=== PATIENT | female | born 1990 | race Two or more races ===

== ENCOUNTER 2021-05-11 13:46 | Outpatient (REF) | payer MEDICAID, SELFPAY ==
[2021-05-11 14:36] LABS: COVID-19 Test Positive (Negative)
== END 2021-05-11 13:47 | disposition home or self-care (01) ==
LOC: HO.LAB 13:46
PROVIDERS: Visit Provider Internal Medicine
DX: Z20.822 Contact with and (suspected) exposure to COVID-19 (principal)
CPT/HCPCS: 36415; 87635; C9803

== ENCOUNTER → 2021-10-02 14:56 | Outpatient (REF) | payer MEDICAID, SELFPAY ==
--- NOTE | 2021-10-02 15:01 | CA_ITS ---
Transthoracic Echocardiogram Patient (Last, First, Middle): Yuni Oropeza, Gender: Female Date of : 1990 Age: 31 Procedure Date: 10/02/2021 Procedure Type: Transthoracic Echocardiogram Location: OP Height: 154.94 cm Weight: 58.97 kg BSA: 1.57 m2 Heart Rate: bpm BP: 110 / 70 mmHg Magnetic Resonance Imaging Director: TO Referring MD: Catina Agee MD Food Products Tester: Tarik Brown MD Symptoms: R00.2 PALPITATIONS Study Quality: Adequate Conclusions: - Normal study Findings Left Ventricle Normal left ventricular size, thickness, systolic function, and wall motion. The visually estimated ejection fraction is between 55-60%. Diastolic function is normal for age. Right Ventricle Normal right ventricular cavity size and systolic function. Atria The left atrium is normal in size. Aortic Valve Normal aortic valve structure and function. There is no aortic valve stenosis. There is no aortic valve regurgitation. Mitral Valve Normal mitral valve structure and function. There is trace mitral valve regurgitation. There is no mitral valve stenosis. Pulmonic Valve Normal pulmonic valve structure and function. There is trace pulmonic valve regurgitation. Tricuspid Valve Normal tricuspid valve structure and function. There is trace tricuspid valve regurgitation. Normal right atrial pressure. There is no evidence of pulmonary hypertension. Great Vessels All visible segments of the aorta are normal in size. The visualized portions of the pulmonary artery and branches are normal. Venous The inferior vena cava is normal in size and collapses greater than 50% with inspiration. Pericardium/Pleural There is no evidence of pericardial effusion. Prior Study Comparison No prior study available for comparison. Measurements 2D Linear Measurements IVSd: 0.68 0.6-0.9/0.6-1.0 cm LVIDd: 4.36 3.9-5.3/4.2-5.9 cm LVIDd Index: 2.78 2.4-3.2/2.2-3.1 cm/m2 LVIDs: 3.01 2.0-3.6 cm LVPWd: 0.67 0.7-1.1 cm LA Diam: 2.70 2.7-3.8/3.0-4.0 cm LAIDs Index: 1.72 1.5-2.3 cm/m2 LV Mass: 107.32 67-162/88-224 g LV Mass Index: 68.36 43-95/49-115 g/m2 LVOT Diam: 1.90 3.0+(-)1.3 cm 2D Systolic Function EF 4C: 64.80 >55% EF 2C: 56.80 >55% EF BiP: 62.30 >55% Mitral Valve MV Pk E: 1.03 MV PK A: 0.36 MV Decel Time: 184.00 E/A: 2.90 E'Lateral: 15.70 E'Medial: 10.10 E/E' Med: 10.20 E/E' Lat: 6.60 PHT: 54.00 MVA PHT: 4.07 Decel Hopkins: 5.58 Aortic Valve AoV Pk Jovon: 1.64 AoV Mn Jovon: 1.09 AoV VTI: 0.32 AoV Pk Grad: 11.00 Aov Mn Grad: 5.00 MUNDO Cont.VTI: 2.05 LVOT LVOT Pk Jovon: 1.25 LVOT Mn Jovon: 0.79 LVOT VTI: 0.23 LVOT Pk Grad: 6.00 LVOT Mn Grad: 3.00 LVOT Diam: 1.90 LVOT Area: 2.84 Diastolic Function MV Pk E: 1.03 MV Pk A: 0.36 E/A: 2.90 E'Medial: 10.10 E/E' Med: 10.20 E' Laterial: 15.70 E/E' Lat: 6.60 Right Ventricle TAPSE (mm): 22.90 TVS' Jovon: 13.20 Tricuspid Valve TR Pk Jovon: 1.72 TR Pk Grad: 12.00 RA Press: 3.00 RVSP: 15.00 Great Vessels Aorta Sinus of Valsalva: 3.05 2.0-3.[address] Ridge: 2.38 1.7-3.4 cm Ao Asc: 2.70 2.1-3.4 cm Ao Arch: 2.40 Updated in Other Vendor System with Status of Final Tarik Brown MD electronically signed on 10/05/2021 3:12:17 PM with status of Final
== END ==
LOC: HO.CARD 14:56
PROVIDERS: PCP Internal Medicine; Visit Provider Internal Medicine
DX: R00.2 Palpitations (principal)
CPT/HCPCS: 93306

== ENCOUNTER 2022-11-11 15:38 | Outpatient (REF) | payer MEDICAID, OTHER, SELFPAY ==
[2022-11-11 16:07] LABS: MANUAL DIFF FLAG NO
[2022-11-11 17:18] LABS: Basophils Absolute Auto 0.1 X10*3/uL (0.0-0.2); Basophils Percent Auto 0.6 % (0-2); Eosinophils Absolute Auto 0.1 X10*3/uL (0.0-0.4); Eosinophils Percent Auto 1.4 % (0-4); Hematocrit 37.8 % (37.0-47.0); Hemoglobin 11.9 g/dl (12.0-16.0); Imm Gran Abs Auto 0.02 X10*3/uL (0.00-0.03); Imm Gran Pct Auto 0.3 % (0.0-0.4); Lymphocytes Absolute Auto 2.8 X10*3/uL (1.2-4.9); Lymphocytes Percent Auto 36.6 % (20-40); Mean Corpuscular HGB Conc 31.5 g/dl (31.0-35.0); Mean Corpuscular Hemoglobin 25.8 pg (27.0-33.0); Mean Platelet Volume 12.2 fL (9.4-12.3); Monocytes Absolute Auto 0.5 X10*3/uL (0.1-1.2); Neutrophils Absolute Auto 4.2 x10*3/uL (2.0-8.3); Neutrophils Percent Auto 54.1 % (45-73); Platelet Count 189 X10*3/uL (160-400); Red Blood Count 4.61 X10*6/uL (4.20-5.50); Red Cell Distribution Width 12.1 % (11.0-16.0); White Blood Count 7.8 X10*3/uL (4.8-10.8)
[2022-11-12 08:38] LABS: Estimated Average Glucose 100 mg/dL; Hemoglobin A1c % 5.1 %
[2022-11-12 08:53] LABS: HBc Num1 0.08 S/CO (0.00-0.79); HBsAGNum1 0.36 S/CO (0.00-0.99); HIV AB/AG Nonreactive (Nonreactive); HIV Num 1 0.06 S/CO (0.00-0.99); Hepatitis B Core Antibody Nonreactive (Nonreactive); Hepatitis B Surface Antigen Negative (Negative)
[2022-11-12 09:04] LABS: ~HepC Num1 0.09 S/CO (0.00-0.79); ~Hepatitis C Antibody Nonreactive (Nonreactive)
== END 2022-11-11 15:39 | disposition home or self-care (01) ==
LOC: HO.LAB 15:38
PROVIDERS: PCP Nurse Practitioner Family; Visit Provider Internal Medicine
DX: Z11.4 Encounter for screening for human immunodeficiency virus [HIV] (principal); R42 Dizziness and giddiness
CPT/HCPCS: 36415; 80048; 82728; 83036; 83540; 84443; 85025; 86704; 86803; 87340; 87389

== ENCOUNTER 2022-12-01 17:50 | Outpatient (REF) | payer MEDICAID, OTHER, SELFPAY ==
[2022-12-09 08:43] LABS: HPV 16 RNA NOT DETECTED (NOT DETECTED); HPV mRNA E6/E7 rflx Detected (Not Detected)
== END 2022-12-01 17:51 | disposition home or self-care (01) ==
LOC: HO.HHCLNP 17:50
PROVIDERS: Visit Provider Nurse Practitioner Family
DX: Z01.419 Encounter for gynecological examination (general) (routine) without abnormal findings (principal); Z11.51 Encounter for screening for human papillomavirus (HPV)
CPT/HCPCS: 87624; 87625; 88142

== ENCOUNTER 2022-12-29 18:45 | Outpatient (REF) | payer MEDICAID, OTHER, SELFPAY | END 2022-12-29 18:46 | disposition home or self-care (01) | LOC: HO.HHCLNP 18:45 | PROVIDERS: Visit Provider Internal Medicine | DX: R31.29 Other microscopic hematuria (principal) | CPT/HCPCS: 87086 ==

== ENCOUNTER 2023-01-04 13:46 | Outpatient (REF) | payer MEDICAID, OTHER, SELFPAY ==
--- NOTE | ~2023-01-04 | CT_ITS ---
EXAMINATION: CT ABDOMEN AND PELVIS WITHOUT CONTRAST CLINICAL INFORMATION: Back/flank pain. COMPARISON: None available. TECHNIQUE: Multidetector volumetric imaging was performed from the superior aspect of the liver through the pubic symphysis. Sagittal and coronal reformatted images were obtained on the technologist's workstation. This CT examination was performed using dose optimization techniques as appropriate, variously including the following: *Automated exposure control *Adjustment of mA and/or kV according to patient size (this includes techniques or standardized protocols for targeted exams where dose is matched to indication/reason for exam; i.e. extremities or head) *Use of iterative reconstruction technique DLP: 389 mGy-cm FINDINGS: LUNG BASES: No pleural or pericardial effusion. LIVER, GALLBLADDER, AND BILIARY TREE: The noncontrast liver is normal in size and contour. No biliary ductal dilatation is present. The gallbladder is unremarkable with no evidence of radiopaque gallstones, gallbladder wall thickening, or obvious pericholecystic inflammatory changes. PANCREAS: Unremarkable. SPLEEN: Unremarkable. ADRENAL GLANDS: Unremarkable. KIDNEYS AND URETERS: The kidneys are symmetric in size. Hyperdense medullary pyramids. 3 mm nonobstructing calculi lower pole right kidney. No hydronephrosis or perinephric stranding. BLADDER: Decompressed. GASTROINTESTINAL TRACT: Gastric distention. Small and large bowel loops are of normal caliber. No small bowel obstruction. Appendix is within normal limits. ABDOMINAL WALL: Small fat-containing umbilical hernia. LYMPH NODES: No bulky abdominal or pelvic lymphadenopathy. VASCULAR: Normal caliber abdominal aorta. PELVIC VISCERA: Unremarkable. OSSEOUS STRUCTURES: No destructive bone lesions. CT/CT abdomen pelvis wo IV con IMPRESSION: Right-sided nephrolithiasis. No hydronephrosis. Medullary nephrocalcinosis.
== END 2023-01-04 13:47 | disposition home or self-care (01) ==
LOC: HO.CT 13:46
PROVIDERS: PCP Nurse Practitioner Family; Visit Provider Internal Medicine
DX: R31.29 Other microscopic hematuria (principal)
CPT/HCPCS: 74176

== ENCOUNTER 2023-07-29 11:47 | Outpatient (REF) | payer MEDICAID, OTHER, SELFPAY ==
[2023-07-31 22:33] LABS: TS Negative Control Passed; TS Panel A 0; TS Panel B 0; TS Positive Control Passed; TSpotTB Negative (Negative)
== END 2023-07-29 11:48 | disposition home or self-care (01) ==
LOC: HO.HHCL 11:47
PROVIDERS: Visit Provider Nurse Practitioner Family
DX: Z11.1 Encounter for screening for respiratory tuberculosis (principal)
CPT/HCPCS: 36415; 86481

== ENCOUNTER 2023-09-01 11:35 | Outpatient (REF) | payer MEDICAID, OTHER, SELFPAY ==
[2023-09-01 13:47] LABS: Estimated Average Glucose 105 mg/dL; Hemoglobin A1c % 5.3 % (<6.0)
[2023-09-01 13:53] LABS: Hematocrit 39.6 % (37.0-47.0); Hemoglobin 12.5 g/dl (12.0-16.0); Mean Corpuscular HGB Conc 31.6 g/dl (31.0-35.0); Mean Corpuscular Hemoglobin 26.7 pg (27.0-33.0); Mean Corpuscular Volume 84.6 fL (80.0-98.0); Mean Platelet Volume 12.5 fL (9.4-12.3); Platelet Count 226 X10*3/uL (160-400); Red Blood Count 4.68 X10*6/uL (4.20-5.50); Red Cell Distribution Width 12.6 % (11.0-16.0); White Blood Count 6.9 X10*3/uL (4.8-10.8)
[2023-09-01 14:35] LABS: Alanine Aminotransferase 17 U/L (0-31); Albumin Level 4.1 g/dL (3.5-5.0); Alkaline Phosphatase 70 U/L (39-117); Anion Gap 8 (12-20); Aspartate Amino Transferase 20 U/L (5-31); Bilirubin Total 0.3 mg/dL (0.0-1.0); Blood Urea Nitrogen 13 mg/dL (9-16); Calcium 9.4 mg/dL (8.4-10.2); Carbon Dioxide 29 mmol/L (22-29); Chloride 108 mmol/L (96-108); Estimated Glomerular Filt Rate > 60; Ferritin 35 ng/mL (10-122); Glucose Random 90 mg/dL (60-115); Iron 135 mcg/dL (30-160); Percent Iron Saturation 43 % (15-50); Potassium 4.4 mmol/L (3.3-5.1); Sodium 141 mmol/L (135-145); TSH reflex Free T4 0.83 uIU/mL (0.32-4.0); Total Iron Binding Capacity 311 mcg/dL (228-428); Total Protein 7.6 g/dL (6.5-8.0); Unsaturated Iron Binding 176 ug/dL
[2023-09-02 08:23] LABS: Syphilis Screen Nonreactive (Nonreactive)
[2023-09-02 08:28] LABS: HBS Num1 10.08 mIU/mL (0-7.99); HBsAGNum1 0.43 S/CO (0.00-0.99); HIV AB/AG Nonreactive (Nonreactive); HIV Num 1 0.05 S/CO (0.00-0.99); Hepatitis B Core Antibody Nonreactive (Nonreactive); Hepatitis B Surface Antigen Negative (Negative); ~HepC Num1 0.12 S/CO (0.00-0.79); ~Hepatitis C Antibody Nonreactive (Nonreactive)
[2023-09-02 09:29] LABS: HBS Num2 9.97 mIU/mL (0-7.99); HBS Num3 9.51 mIU/mL (0-7.99); ~Hepatitis B Surface Antibody GRAYZONE (Nonreactive)
== END 2023-09-01 11:36 | disposition home or self-care (01) ==
LOC: HO.HHCL 11:35
PROVIDERS: Visit Provider Student in an Organized Health Care Education/Training Program
DX: Z00.00 Encounter for general adult medical examination without abnormal findings (principal); Z11.4 Encounter for screening for human immunodeficiency virus [HIV]
CPT/HCPCS: 36415; 80053; 82728; 83036; 83540; 84443; 85027; 86704; 86706; 86780; 86803; 87340; 87389

== ENCOUNTER 2024-03-11 11:34 | Emergency (ER) | payer OTHER, SELFPAY ==
--- NOTE | ~2024-03-11 | US_ITS ---
EXAMINATION: US PELVIS CLINICAL INFORMATION: Lower abdomen pain, question torsion COMPARISON: CT abdomen and pelvis from the same day TECHNIQUE: Ultrasound of the pelvis is performed using both transabdominal and transvaginal transducers along with Doppler. Transvaginal imaging is performed due to inadequate visualization transabdominally. FINDINGS: Uterus: The uterus is retroverted retroflexed and measures 7.2 x 3.5 x 4.9 cm. The double wall endometrial thickness is 1.1 mm. The uterus is smooth in contour and has normal myometrial echogenicity. No visible fibroid. Adnexa: Both ovaries are visualized. There is normal color flow to the adnexa. There is no ovarian torsion. There is no pelvic ascites or fluid collection. Right ovary measures 2.1 x 0.8 x 1.2 cm. Left ovary measures 2.5 x 1.0 x 1.2 cm. US/US pelvic ovarian doppler IMPRESSION: Unremarkable pelvic ultrasound. Electronically signed by: John Espino MD 03/11/2024 01:57 PM VIVIENNE
--- NOTE | ~2024-03-11 | CT_ITS ---
EXAMINATION: CT ABDOMEN AND PELVIS WITH CONTRAST CLINICAL INFORMATION: Pelvic and abdominal pain COMPARISON: 01/04/2023 TECHNIQUE: Multidetector volumetric images were obtained from the superior aspect of the liver through the pubic symphysis following administration 85 mL of Omnipaque 350 intravenous contrast. Sagittal and coronal reformatted images were obtained on the technologist's workstation. Oral contrast: No This CT examination was performed using dose optimization techniques as appropriate, variously including the following: *Automated exposure control *Adjustment of mA and/or kV according to patient size (this includes techniques or standardized protocols for targeted exams where dose is matched to indication/reason for exam; i.e. extremities or head) *Use of iterative reconstruction technique DLP: 372 mGy-cm FINDINGS: LUNG BASES: The visualized lung bases are unremarkable. LIVER, GALLBLADDER, AND BILIARY TREE: The liver is normal in size, shape, and attenuation. No focal hepatic lesion or biliary ductal dilatation is present. The gallbladder is unremarkable with no evidence of radiopaque gallstones, gallbladder wall thickening, or obvious pericholecystic inflammatory changes. PANCREAS: Unremarkable. SPLEEN: Unremarkable. ADRENAL GLANDS: Unremarkable. KIDNEYS AND URETERS: There is mild right-sided hydroureteronephrosis with a suspected 3 mm calculus at the right ureterovesicular junction. There is a 3 mm kyphosis in the lower pole of the right kidney. No left-sided hydronephrosis or calculi. BLADDER: Unremarkable. GASTROINTESTINAL TRACT: The small and large bowel are unremarkable. The appendix is unremarkable. ABDOMINAL WALL: Small fat-containing umbilical hernia. LYMPH NODES: Normal. VASCULAR: Unremarkable. PELVIC VISCERA: Retroverted uterus. Suspect a small amount of fluid within the pelvis which is likely physiologic OSSEOUS STRUCTURES: Unremarkable. CT/CT abdomen pelvis w IV con IMPRESSION: 1. Mild right-sided hydroureteronephrosis with a suspected 3 mm calculus at the right ureterovesicular junction. Recommend correlation with history and urinalysis. 2. 3 mm nonobstructing calculus in the lower pole of the right kidney. 3. Small amount of free fluid in the pelvis which is likely physiologic. Fleischner guidelines were followed. Electronically signed by: John Espino MD 03/11/2024 01:38 PM EST
--- NOTE | ~2024-03-11 | US_ITS ---
EXAMINATION: US PELVIS CLINICAL INFORMATION: Lower abdomen pain, question torsion COMPARISON: CT abdomen and pelvis from the same day TECHNIQUE: Ultrasound of the pelvis is performed using both transabdominal and transvaginal transducers along with Doppler. Transvaginal imaging is performed due to inadequate visualization transabdominally. FINDINGS: Uterus: The uterus is retroverted retroflexed and measures 7.2 x 3.5 x 4.9 cm. The double wall endometrial thickness is 1.1 mm. The uterus is smooth in contour and has normal myometrial echogenicity. No visible fibroid. Adnexa: Both ovaries are visualized. There is normal color flow to the adnexa. There is no ovarian torsion. There is no pelvic ascites or fluid collection. Right ovary measures 2.1 x 0.8 x 1.2 cm. Left ovary measures 2.5 x 1.0 x 1.2 cm. US/US pelvic and transvaginal IMPRESSION: Unremarkable pelvic ultrasound. Electronically signed by: John Espino MD 03/11/2024 01:57 PM [facility]IENNE SUAZO
[2024-03-11 11:35] VITALS: BP 118/73; PULSE 78; RESP 18; TEMP 36.3; O2SAT 100; BMI 23.2
--- NOTE | 2024-03-11 11:36 | ED.NAVMDI ---
HPI - Nausea/Vomiting/Diarrhea General Chief complaint: Abdominal Pain Stated complaint: Abd pain, Vomiting Time Seen by Provider: 03/11/24 11:55 Source: patient Mode of arrival: ambulatory Limitations: no limitations History of Present Illness ED Provider: Halley PATRICK HPI Narrative: This is a 33-year-old female with no reported medical history presenting to the emergency department with complaints of severe right lower quadrant abdominal discomfort that started suddenly yesterday, yesterday patient reports pain was severe but not as bad as today pain peak today she reports greater than 10/10 pain. Pain is localized to the right lower quadrant and does not radiate. She reports associated nausea and vomiting. No sick contacts. No fevers, chills, chest pain, shortness of breath, difficulties with urination or bowel habits, cough, saddle anesthesias, headache, vision changes. She last ate last night has not been able to eat or drink today. Denies drug use including marijuana. Patient is on control and does not think she is her last menstrual period was about a month ago. Related Data Previous Rx's ?Medication ?Instructions ?Recorded cefuroxime axetil 250 mg tablet 250 mg PO BID 7 days #14 tabs 03/11/24 ketorolac 10 mg tablet 10 mg PO TID PRN pain 5 days #15 03/11/24 tabs prednisone 20 mg tablet 20 mg PO DAILY 5 days #5 tabs 03/11/24 tamsulosin 0.4 mg capsule (Flomax) 0.4 mg PO DAILY 2 weeks #14 caps 03/11/24 Allergies Allergy/AdvReac Type Severity Reaction Status Date / Time No Known Allergies Allergy Verified 03/11/24 11:35 [No Known Allergies*] Review of Systems Review of Systems: Yes all other systems are reviewed and are negative PMFSH Past Medical History Attestation statement: The following information was validated with the patient. Source: old records reviewed and nursing notes reviewed Social History Social History Smoked in Last 30 Days: No Use of substances other than those prescribed or required for medical reasons: No Advance Directives: No Advance Directives Information Provided: Yes Do you have a plan to hurt others: No Plan Physical Exam Vital Signs: Vital Signs: Last Vital Signs Temp 97.4 F 03/11/24 11:35 Pulse 78 03/11/24 11:35 Resp 18 03/11/24 11:35 BP 118/73 03/11/24 11:35 Pulse Ox 100 03/11/24 11:35 O2 Del Method Room Air 03/11/24 11:35 BMI result Body Mass Index 23.2 vss Appearance: Alert.? Oriented X3.? No acute distress.? Head: Normocephalic, atraumatic, no step-offs or deformities Eyes: Pupils equal, round and reactive to light.? ENT: Pharynx normal.? Neck: Normal inspection.? Neck supple.? CVS: Normal heart rate and rhythm.? Pulses normal.? Respiratory: No respiratory distress.? Breath sounds normal.? Abdomen: Soft and + diffuse abdominal discomfort worse to the right lower quadrant with rebound tenderness. Skin: Skin warm and dry.? Normal skin color.? Normal skin turgor.? Extremities: No lower extremity edema.? No calf ttp. 5/5 strength to bilateral upper and lower extremities Neuro: Oriented X 3.? No motor deficit.? No sensory deficit. CN 2-12 intact Course Course Course Narrative: This is an RME: Additional HPI, ROS, PE not included below will be deferred to primary provider. RME assessment and note performed by: Sara Livingston PA-C This is a [id number]-female who presents to the ER, accompanied by her , with complaints of abdominal pain, nausea and vomiting. No urinary symptoms. Patient reports right lower quadrant pain however does report that the pain radiates up until her entire abdomen. Abdomen is soft however with diffuse tenderness with guarding. Last menstrual period was 1 month ago. She is on control. She is sexually active. Patient appears to be uncomfortable. Alerted charge nurse to bring patient back as soon as possible Plan: Labs, UA, further ER evaluation needed. Reevaluation(s) Reevaluation #1: CBC with leukocytosis no left shift. This could be reactive from nausea and vomiting. Chemistry no acute findings needing intervention. Normal lactic acid. Normal beta hCG. UA with large amount of blood, 1+ bacteria this could be a contaminant however for now will cover with broad-spectrum antibiotics as the etiology of patient's pain is unclear. Time: 12:16 Reevaluation #2: CT abdomen pelvis with mild right-sided hydroureter nephrosis with suspected 3 mm calculus at the UVJ, likely causing patient's pain. It is possible she has passed the stone at this time as she is much more comfortable. There is also a 3 mm nonobstructing calculus in the lower pole the right kidney. Will treat with Toradol, prednisone, Flomax. Transvaginal ultrasound unremarkable. No signs of torsion. Will have her follow-up with urology as needed. Ran this case by Urology Dr. March who agrees w/ plan will have a nurse call and triage her tomorrow Educated patient on diagnosis and treatment plan, answered all question, patient verbalizes understanding. At this time patient will be discharged home, advised to return with new or worsening symptoms. Educated on worrisome signs and symptoms and when to return. At this time I feel comfortable discharge home. Time: 14:15 Medications Administered Discontinued Medications Generic Name Dose Route Start Last Admin Trade Name Freq PRN Reason Stop Dose Admin Ceftriaxone Sodium 1 gm 03/11/24 12:09 03/11/24 12:36 Ceftriaxone Sodium 1 Gm Vial IVPUSH 03/11/24 12:10 1 gm ONCE ONE Administration Iohexol 85 ml 03/11/24 13:16 03/11/24 13:16 Iohexol 350 Mg/Ml 100 Ml Infus..Btl IV 03/11/24 13:17 85 ml ONCE ONE Administration Morphine Sulfate 4 mg 03/11/24 11:55 03/11/24 12:00 Morphine Sulfate 4 Mg/Ml Cartridge IVPUSH 03/11/24 11:56 4 mg ONCE ONE Administration Protocol Ondansetron HCl 4 mg 03/11/24 11:55 03/11/24 11:59 Ondansetron Hcl 4 Mg/2 Ml Vial IVPUSH 03/11/24 11:56 4 mg ONCE ONE Administration Medical Decision Making Medical Decision Making MDM Narrative: 33-year-old female presents with right lower quadrant pain since yesterday severely worsening today Physical exam + diffuse abdominal discomfort worse to the right lower quadrant with rebound tenderness. History and physical exam concerning for appendicitis versus ovarian cyst versus ovarian torsion. Other differentials include ectopic although less likely. Will rule out metabolic derangements, urinary infection. Plan labs, imaging, urine. Differential Diagnosis Differential Diagnoses: The differential diagnosis associated with the presentation includes (History and physical exam concerning for appendicitis versus ovarian cyst versus ovarian torsion. Other differentials include ectopic although less likely. Will rule out metabolic derangements, urinary infection.) Admission/Observation Consideration of admission/observation: Escalation of care including admission/observation considered Lab Data MDM Lab Attestation statement: I reviewed the patient's lab results. 03/11/24 11:45 03/11/24 11:45 Labs: Lab Results 03/11/24 03/11/24 03/11/24 Range/Units 11:45 11:52 12:23 WBC 12.4 H (4.8-10.8) X10*3/uL RBC 4.40 (4.20-5.50) X10*6/uL Hgb 11.8 L (12.0-16.0) g/dl Hct 36.3 L (37.0-47.0) % MCV 82.5 (80.0-98.0) fL MCH 26.8 L (27.0-33.0) pg MCHC 32.5 (31.0-35.0) g/dl RDW 13.1 (11.0-16.0) % Plt Count 218 (160-400) X10*3/uL MPV 11.2 (9.4-12.3) fL Immature Gran % (Auto) 0.4 (0.0-0.4) % Neut % (Auto) 67.9 (45-73) % Lymph % (Auto) 25.6 (20-40) % [place] % (Auto) 5.2 (2-11) % Eos % (Auto) 0.5 (0-4) % Baso % (Auto) 0.4 (0-2) % Lymph # (Auto) 3.2 (1.2-4.9) X10*3/uL [place] # (Auto) 0.6 (0.1-1.2) X10*3/uL Eos # (Auto) 0.1 (0.0-0.4) X10*3/uL Baso # (Auto) 0.1 (0.0-0.2) X10*3/uL Abs Immat Gran (auto) 0.05 H (0.00-0.03) X10*3/uL Absolute Neuts (auto) 8.4 H (2.0-8.3) x10*3/uL Absolute Nucleated RBC 0.000 (0.0-0.012) X10*3/uL Nucleated RBC % (auto) 0.0 (0.0-0.2) /100WBC Sodium 140 (135-145) mmol/L Potassium 3.7 (3.3-5.1) mmol/L Chloride 108 (96-108) mmol/L Carbon Dioxide 21 L (22-29) mmol/L Anion Gap 15 (12-20) BUN 9 (9-16) mg/dL Creatinine 0.82 (0.5-1.4) mg/dL Estim Creat Clear Calc 72.9 Estimated GFR > 60 Random Glucose 115 (60-115) mg/dL Lactic Acid 1.9 (0.5-2.0) mmol/L Calcium 9.3 (8.4-10.2) mg/dL Magnesium 1.9 (1.6-2.6) mg/dL Total Bilirubin 0.3 (0.0-1.0) mg/dL Direct Bilirubin 0.2 (0.0-0.5) mg/dL AST 21 (5-31) U/L ALT 17 (0-31) U/L Alkaline Phosphatase 46 (39-117) U/L Total Protein 7.0 (6.5-8.0) g/dL Albumin 3.9 (3.5-5.0) g/dL Lipase 24 (8-78) U/L Beta HCG, Quant < 2 mIU/mL Urine Color Yellow Urine Appearance Hazy Urine pH 6.0 (5.0-9.0) Ur Specific [place] >= 1.030 H (1.005-1.025) Urine Protein Trace (Neg-Trace) mg/dL Urine Glucose (UA) Negative (Negative) mg/dL Urine Ketones >=80 (Negative) mg/dL Urine Blood Large (3+) H (Negative) Urine Nitrite Negative (Negative) Ur Leukocyte Esterase Negative (Negative) Urine RBC >20 H (0-2) /HPF Urine WBC 11-20 H (0-5) /HPF Ur Squamous Epith Cells 11-20 (0-2) /HPF Urine Bacteria 1+ (None Seen) Hyaline Casts 3-5 (0-2) /LPF Independent Interpretation I performed an independent interpretation of an: Ultrasound and CT Scan Radiology Impression Discussion of test interpretation with radiology: I have reviewed the radiologist's reading. Chronic Conditions Patient?s care impacted by: Other (denies) Critical Care Time Critical Care Time Critical Care Time: Yes Total Critical Care Time: 35 Attestation: I attest to this time spent taking care of the patient, obtaining history, physical, reviewing labs, imaging, treatment of patients condition +/- specialist/hospitalist consult Discharge Plan Discharge Clinical Impression: Calculus of kidney Patient Disposition: Home, Self-Care Instructions: Kidney Stones (ED) Additional Instructions: Take your medications as prescribed. If you were prescribed antibiotics today, it is important that you take your medication to their entirety, do not skip any doses, do not finish them early. Follow-up with your primary care provider this week. Return to the emergency department with new or worsening symptoms. Such as fevers, chills, chest pain, shortness of breath, nausea, vomiting, dizziness, headache, vision changes, lethargy In case of emergency call 911 US/US pelvic ovarian doppler IMPRESSION: Unremarkable pelvic ultrasound. CT/CT abdomen pelvis w IV con IMPRESSION: 1. Mild right-sided hydroureteronephrosis with a suspected 3 mm calculus at the right ureterovesicular junction. Recommend correlation with history and urinalysis. 2. 3 mm nonobstructing calculus in the lower pole of the right kidney. 3. Small amount of free fluid in the pelvis which is likely physiologic. Fleischner guidelines were followed. Toradol has been sent to your pharmacy, you tolerated this well in the department. Please take this as prescribed do not take this with ibuprofen, or other NSAIDs, do not mix this with alcohol. Side effects of this medication including increased risk for bleeding and possible kidney injury. Follow-up with urology as needed. Return with new or worsening symptoms Prescriptions: New cefuroxime axetil 250 mg tablet 250 mg PO BID 7 Days Qty: 14 0RF prednisone 20 mg tablet 20 mg PO DAILY 5 Days Qty: 5 0RF ketorolac 10 mg tablet 10 mg PO TID PRN (Reason: pain) 5 Days Qty: 15 0RF Rx Instructions: Tolerated IM or IV in department tamsulosin [Flomax] 0.4 mg capsule 0.4 mg PO DAILY 14 Days Qty: 14 0RF Referrals: [facility] [place] [facility] [Provider Group] - 2 days Physician,Unknown J [Primary Care Provider] - 2 days Stand Alone Forms: Work/School Release Print Language: English
[2024-03-11 11:56] LABS: MANUAL DIFF FLAG NO
[2024-03-11 11:57] LABS: Basophils Absolute Auto 0.1 X10*3/uL (0.0-0.2); Basophils Percent Auto 0.4 % (0-2); Eosinophils Absolute Auto 0.1 X10*3/uL (0.0-0.4); Eosinophils Percent Auto 0.5 % (0-4); Hematocrit 36.3 % (37.0-47.0); Hemoglobin 11.8 g/dl (12.0-16.0); Imm Gran Abs Auto 0.05 X10*3/uL (0.00-0.03); Imm Gran Pct Auto 0.4 % (0.0-0.4); Lymphocytes Absolute Auto 3.2 X10*3/uL (1.2-4.9); Lymphocytes Percent Auto 25.6 % (20-40); Mean Corpuscular HGB Conc 32.5 g/dl (31.0-35.0); Mean Corpuscular Hemoglobin 26.8 pg (27.0-33.0); Mean Corpuscular Volume 82.5 fL (80.0-98.0); Mean Platelet Volume 11.2 fL (9.4-12.3); Monocytes Absolute Auto 0.6 X10*3/uL (0.1-1.2); Monocytes Percent Auto 5.2 % (2-11); Neutrophils Absolute Auto 8.4 x10*3/uL (2.0-8.3); Neutrophils Percent Auto 67.9 % (45-73); Platelet Count 218 X10*3/uL (160-400); Red Cell Distribution Width 13.1 % (11.0-16.0); White Blood Count 12.4 X10*3/uL (4.8-10.8)
[2024-03-11 11:58] LABS: Appearance Urine Hazy; Color Urine Yellow; Glucose Urine UA Negative (Negative); Leukocyte Esterase Urine Negative (Negative); Nitrite Urine Negative (Negative); Specific Gravity - Urine >= 1.030 (1.005-1.025); UMIC TRIGGER UACC YES; Urine Blood Large (3+) (Negative); Urine Ketones >=80 mg/dL (Negative); Urine Protein Trace mg/dL (Neg-Trace)
[2024-03-11] MEDS: ondansetron HCL 4 MG/2 ML VIAL IVPUSH (11:59)
[2024-03-11] MEDS: Morphine Sulfate 4 MG/ML CARTRIDGE IVPUSH (12:00)
[2024-03-11 12:02] LABS: Bacteria Urine 1+ (None Seen); RBC Urine >20 /HPF (0-2); UACC Culture Trigger YES
[2024-03-11 12:22] LABS: Alanine Aminotransferase 17 U/L (0-31); Albumin Level 3.9 g/dL (3.5-5.0); Alkaline Phosphatase 46 U/L (39-117); Anion Gap 15 (12-20); Aspartate Amino Transferase 21 U/L (5-31); Bilirubin Direct 0.2 mg/dL (0.0-0.5); Bilirubin Total 0.3 mg/dL (0.0-1.0); Blood Urea Nitrogen 9 mg/dL (9-16); Calcium 9.3 mg/dL (8.4-10.2); Carbon Dioxide 21 mmol/L (22-29); Chloride 108 mmol/L (96-108); Creatinine Clr Calc Pharmacy 72.9; Estimated Glomerular Filt Rate > 60; Glucose Random 115 mg/dL (60-115); Lipase 24 U/L (8-78); Magnesium 1.9 mg/dL (1.6-2.6); Potassium 3.7 mmol/L (3.3-5.1); Sodium 140 mmol/L (135-145)
[2024-03-11 12:23] LABS: HCG Quantitative < 2 mIU/mL
--- NOTE | 2024-03-11 12:27 | PC.NURSE ---
pt brought back from triage with severe abd pain. pt is guarding - pain is on the right lower quadrant primarily. In the ED room pt vomited a large amount of clear watery vomit on the floor. IV immediately established - 20g right AC. pain meds and zofran given too. Morphine has had some effect. Pt says pain has lessened a little but is still severe. Blood cultures and lactic being drawn with rocephin pending.
[2024-03-11] MEDS: cefTRIAXone sodium 1 GM VIAL IVPUSH (12:36)
[2024-03-11 12:40] LABS: Lactic Acid 1.9 mmol/L (0.5-2.0)
[2024-03-11] MEDS: iohexoL 350 MG/ML 100 ML INFUS..BTL 85 ML IV (13:16)
[2024-03-11 14:21] VITALS: BP 118/68; PULSE 82; RESP 18; TEMP 36.9; O2SAT 99
[2024-03-11] MEDS: Ketorolac Tromethamine 15 MG/ML VIAL IVPUSH (14:29)
[2024-03-11] MEDS: 0.9 % Sodium Chloride 1,000 ML 999 ML IV (14:29)
[2024-03-11] MEDS: Tamsulosin HCL 0.4 MG CAPSULE PO (14:30)
[2024-03-11] MEDS: predniSONE 20 MG TABLET PO (14:30)
[2024-03-11 15:04] VITALS: BP 118/68; PULSE 82; RESP 18; TEMP 36.9; O2SAT 99
== END 2024-03-11 15:04 | disposition home or self-care (01) ==
PROVIDERS: Physician Assistant; Physician Assistant Medical; Emergency Provider Emergency Medicine Emergency Medical Services
DX: N20.0 Calculus of kidney (principal); R11.2 Nausea with vomiting, unspecified; R10.31 Right lower quadrant pain; R10.2 Pelvic and perineal pain; Z79.899 Other long term (current) drug therapy
CPT/HCPCS: 36415; 74177; 76830; 76856; 80048; 80076; 81001; 83605; 83690; 83735; 84702; 85025; 87040; 87086; 93975; 96361; 96374; 96375; 99284; J0696; J1885; J2270; J2405; Q9967

== ENCOUNTER 2024-04-10 14:51 | Outpatient (AMB) | payer OTHER, SELFPAY ==
--- NOTE | 2024-04-10 14:59 | A.OFFVIS_ITS ---
Intake Visit Reasons: kidney stones Intake Note: New Patient presents for initial visit for kidney stones Urology Medications: none Blood Thinner: none Rfid Analyst Required: Yes Rfid Analyst Name: Dorothy [id number] Allergies No Known Allergies [No Known Allergies*] Allergy (Verified 04/10/24 15:31) Medication List - Last Reconciled 04/10/24 by RAMÍREZ Johnson No Known Home Meds HPI Comments Details: Yuni is a pleasant 33-year-old Malagasy-speaking female patient. She presents to the office today as a new patient for nephrolithiasis. In discussion with the patient today she reports having seeked emergency room care approximately 1 month ago for ongoing pelvic pain and abdominal pain she had been experiencing at which time a CT was ordered. These results reviewed with the patient today. 04/01 there is mild right-sided hydroureteronephrosis with a suspected 3 mm calculus in the right UVJ. There is a 3 mm kyphosis in the lower pole of the right kidney no left-sided hydronephrosis or calculi noted. She reports having completed prednisone, Flomax, and antibiotics as prescribed by ER physician. She is unsure if she has passed any stone fragments however does feel pain she had been experiencing has improved. She reports pain is not as severe as prior however does feel she continues with intermittent episodes of flank pain. No CVA tenderness noted bilaterally. We discussed surgical intervention verses obtaining renal ultrasound to ensure resolution of passage of s tone/hydronephrosis noted on recent imaging. She otherwise denies any bothersome urinary issues. She denies any previous history of nephrolithiasis and or surgical intervention for nephrolithiasis. She denies urinary urgency, urinary frequency, incontinence, nocturia, hematuria, dysuria, foul smelling urine, changes to urinary stream, fever, and or chills. She is happy with her current voiding parameters. In office urinalysis results reviewed with the patient today 2+ microscopic hematuria and pH 5.5. We discussed at length importance of hydration relation to nephrolithiasis as well as overall health and well-being. She otherwise offers no other issues or concerns at this time. Review of Systems Const All systems reviewed & are unremarkable except as noted in HPI and below Physical Exam Const General: cooperative, healthy appearing, comfortable, no acute distress, well developed, alert and awake Orientation/consciousness: patient oriented x3 Limitations: no limitations HEENT Head: Yes normal to inspection, Yes normocephalic and Yes atraumatic Ears: hearing grossly normal bilaterally Eyes General: appearance normal, both eyes and all related structures Neck Neck: Yes normal visual inspection and Yes trachea midline Chest Chest palpation & inspection: normal inspection of the chest Resp Effort & Inspection: normal respiratory effort and able to speak in complete sentences Cardio Rate: regular rate GI Inspection: Yes normal to inspection General: Yes no CVA tenderness Back/Spine/Pelvis Back: no CVA tenderness Skin General skin exam: no rashes or lesions noted Neuro General: patient oriented x3 Extrem General: Yes normal to inspection Psych Appearance: grossly normal and well kempt Mental Status: mental status grossly normal Speech and movement: Normal speech and movement present and Clear speech present Affect: normal affect Attitude: cooperative Thought process: Normal thought process present Thought content: Normal thought content present Insight: Fair insight present (Psych) Judgement: Fair judgement present (Psych) Results AMB Urinalysis, Automated 2 UA Leukoctes 0 Yanni/uL Last Edit by [email or web address] on 04/10/24 15:17 UA Nitrite Last Edit by [email or web address] on 04/10/24 15:17 UA Urobilinogen 0.2 mg/dL Last Edit by [email or web address] on 04/10/24 15:17 UA Protein 15 mg/dL Last Edit by [email or web address] on 04/10/24 15:17 UA pH 5.5 Last Edit by [email or web address] on 04/10/24 15:17 UA Blood 80 Stephan/uL Last Edit by [email or web address] on 04/10/24 15:17 UA Specific [place] 1.030 Last Edit by [email or web address] on 04/10/24 15:17 UA Ketone Last Edit by [email or web address] on 04/10/24 15:17 UA Bilirubin 0 mg/dL Last Edit by [email or web address] on 04/10/24 15:17 UA Glucose 0 mg/dL Last Edit by Michelle Lerma on 04/10/24 15:17 Results Reviewed Results Reviewed: Laboratory Last Values Urine pH (Auto) 5.5 04/10/24 15:13 Specific [place] (Auto) 1.030 04/10/24 15:13 Urine Protein (Auto) 15 mg/dL 04/10/24 15:13 Glucose (UA)(Auto) 0 mg/dL 04/10/24 15:13 Urine Blood (Auto) 80 Stephan/uL 04/10/24 15:13 Urine Bilirubin (Auto) 0 mg/dL 04/10/24 15:13 Urine Urobilinogen (Auto) 0.2 mg/dL 04/10/24 15:13 Leukocyte Esterase (Auto) 0 Yanni/uL 04/10/24 15:13 Date of Service: 03/11/24 EXAMINATION: CT ABDOMEN AND PELVIS WITH CONTRAST FINDINGS: LUNG BASES: The visualized lung bases are unremarkable. LIVER, GALLBLADDER, AND BILIARY TREE: The liver is normal in size, shape, and attenuation. No focal hepatic lesion or biliary ductal dilatation is present. The gallbladder is unremarkable with no evidence of radiopaque gallstones, gallbladder wall thickening, or obvious pericholecystic inflammatory changes. PANCREAS: Unremarkable. SPLEEN: Unremarkable. ADRENAL GLANDS: Unremarkable. KIDNEYS AND URETERS: There is mild right-sided hydroureteronephrosis with a suspected 3 mm calculus at the right ureterovesicular junction. There is a 3 mm kyphosis in the lower pole of the right kidney. No left-sided hydronephrosis or calculi. BLADDER: Unremarkable. GASTROINTESTINAL TRACT: The small and large bowel are unremarkable. The appendix is unremarkable. ABDOMINAL WALL: Small fat-containing umbilical hernia. LYMPH NODES: Normal. VASCULAR: Unremarkable. PELVIC VISCERA: Retroverted uterus. Suspect a small amount of fluid within the pelvis which is likely physiologic OSSEOUS STRUCTURES: Unremarkable. IMPRESSION: 1. Mild right-sided hydroureteronephrosis with a suspected 3 mm calculus at the right ureterovesicular junction. Recommend correlation with history and urinalysis. 2. 3 mm nonobstructing calculus in the lower pole of the right kidney. 3. Small amount of free fluid in the pelvis which is likely physiologic. Assessment & Plan Assessment & Plan (1) Hydronephrosis concurrent with and due to calculi of kidney and ureter: Code(s): N13.2 - Hydronephrosis with renal and ureteral calculous obstruction Category: Medical (2) Microscopic hematuria: Code(s): R31.29 - Other microscopic hematuria Category: Medical Plan In office urinalysis results reviewed with the patient today; as noted above. Recent CT results reviewed with the patient today; as noted above. We discussed potential surgical intervention Will obtain renal ultrasound for further assessment evaluation. Discussed, educated, and stressed the importance of adequate hydration relation to nephrolithiasis as well as overall health and well-being. Discussed adding 1 oz of lemon juice to water daily. She otherwise denies any bothersome urinary issues. She reports be happy with current voiding parameters. Follow-up in 1-2 weeks with imaging to be completed prior; or sooner with any issues, concerns, and or questions. Orders: Orders AMB Urinalysis Automated Today Z13.9 - Encounter for screening, unspecified US renal BI Today N20.0 - Calculus of kidney Medications: Discontinued cefuroxime axetil Discontinued Reason: Patient no longer taking 250 mg PO BID 7 days 14 tabs 0RF ketorolac Tolerated IM or IV in department Discontinued Reason: Patient no longer taking 10 mg PO TID 5 days PRN 15 tabs 0RF pain prednisone Discontinued Reason: Patient no longer taking 20 mg PO DAILY 5 days 5 tabs 0RF tamsulosin (Flomax) Discontinued Reason: Patient no longer taking 0.4 mg PO DAILY 2 weeks 14 caps 0RF Patient Instructions: The patient had an opportunity to ask questions regarding the treatment plan. All questions were answered. Physical exam, labs, and imaging were discussed and reviewed in detail. As well as risks, benefits, and discussion of treatment choices. No major barriers to understanding were identified. The patient expressed understanding and agreement with the above treatment plan. The patient was made aware they should contact our office by phone for worsening of their current condition, the appearance of new symptoms, or with any questions or concerns. Compliance is encouraged with any medications and follow up testing that is ordered. It is a privilege to be allowed the opportunity to participate in? your urological care.? Again, if you have any questions or concerns If you have any questions or concerns please do not hesitate to contact me. The office is [phone]. This note is constructed using voice recognition software. While every effort has been made to ensure accuracy copyright clerk errors may have been included. Yours sincerely, China Strong, ANGLESMITH-BC Coding Level of Care Code New Pt Level 3 (94744) Diagnoses Hydronephrosis concurrent with and due to calculi of kidney and ureter N13.2 Microscopic hematuria R31.29
== END 2024-04-10 15:50 | disposition home or self-care (01) ==
PROVIDERS: Visit Provider Nurse Practitioner Family
DX: N13.2 Hydronephrosis with renal and ureteral calculous obstruction (principal); R31.29 Other microscopic hematuria; Z13.9 Encounter for screening, unspecified
CPT/HCPCS: 99203

== ENCOUNTER → 2024-04-10 14:51 | Outpatient (BNVA) | payer OTHER, SELFPAY | PROVIDERS: Visit Provider Nurse Practitioner Family | DX: N13.2 Hydronephrosis with renal and ureteral calculous obstruction (principal); R31.29 Other microscopic hematuria | CPT/HCPCS: 81003; 99202 ==

== ENCOUNTER 2024-09-17 14:49 | Outpatient (REF) | payer OTHER, SELFPAY ==
--- NOTE | ~2024-09-17 | XR_ITS ---
EXAMINATION: XR FOOT, RIGHT CLINICAL INFORMATION: pt with hx of multiple foot surgeries with new pain bewteen 4rd and 5th toe COMPARISON: None available. TECHNIQUE: AP, lateral, and oblique views of the right foot. FINDINGS: No fracture, dislocation, or suspicious bone lesion. 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 Flattening of the talar dome. Flattening of the calcaneus. Hammertoe deformities. No discrete abnormality between the fourth and fifth toes. Normal soft tissues. XR/XR foot RT min 3V IMPRESSION: No acute bony abnormalities. Extensive chronic changes. Electronically signed by: Jose Nolasco MD 09/17/2024 03:15 PM EDT
--- OUTSIDE RECORDS SUMMARY | 2024-09-17 14:51 | XMS_ITS | Encounter Summary ---
Author Organization [employer] Address [address] [facility] [address] [place] [address] Care Team Providers Care Polymerization Supervisor Name Role Phone Nathalie Zambrano Primary Care Provider [phone] Louise Thomas MD Primary Care Pro vider Encounter Details Date Type Department Care Team (Late st Contact Info) Description 11/03/2022 Orders Only [facility] MEDICINE [address], [place] [phone] Nathalie Zambrano FNP [address] [place] [address] Encounter for surveillance of contraceptive pills Social History Tobacco Use Types Packs/Day Years Used Date Smoking Tobacco: Never Smokeless Tobacco: Never Alcohol Use Standard Drinks/Week Comments Never 0 (1 standard drink = 0.6 oz pur e alcohol) Depression Answer Date Recorded Patient Health Questionnaire-9 Score 0 06/18/2022 Depression Answer Date Recorded Patient Health Questionnaire-2 Score 0 06/18/2022 Comments Unknown Sex and Gender Information Value Date Recorded Sex Assigned at Female 03/08/2022 10:29 AM EDT Legal Sex Female 10:29 AM EDT Gender Identity Female 03/08/2022 10:29 AM EDT Sexual Orientation Straight 03/08/2022 10 :29 AM EDT Travel History Travel Start Travel End [place] 08/25/2024 09/01/2024 COVID-19 Exposure Response Date Recorded In the last 10 days, have yo u been in contact with someone who was confirmed or suspected to have Coronavirus/COVID-19? No / Unsure 11/03/2022 10:19 AM EDT documented as of this encounter Plan of Treatment Upcoming Encounters Date Type Department Care Team ([facility] st Contact Info) Description 10/04/2024 11:00 AM EDT Procedure Visit [facility] MEDICINE [address] [place] [address] Karina Hamilton CNM [address] [place] [address] 11/14/2024 11:30 AM EDT Office Visit [facility] MEDICINE [address] [place] [address] Louise Thomas MD [address] [place], [place] [phone] documented as of this encounter Procedures Procedure Name Priority Date/Time Associated Diagnosis Comments CULTURE, URINE, ROUTINE Routine 12/29/2022 10:36 AM EDT Encounter for surveillance of contraceptive pills HPV MRNA E6/E7 REFLEX TO HPV 16, 18/45 Routine 12/01/2022 12:00 AM EDT Encounter for surveillance of contraceptive pills PAP SMEAR Routine 12/01/2022 12:00 AM EDT Encounter for surveillance of contraceptive pills HEPATITIS C ANTIBODY REFLEX Routine 11/11/2022 4:06 PM EDT Encounter for surveillance of contraceptive pills HIV ANTIBODY/ANTIGEN ([place] DPH) Routine 11/11/2022 4:06 PM EDT Encounter for surveillance of contraceptive pills TSH W/REFLEX TO FT4 Routine 11/11/2022 4 :06 PM EDT Encounter for surveillance of contraceptive pills CBC WITH AUTO DIFFERENTIAL Routine 11/11/2022 4:06 PM EDT Encounter for surveillance of contraceptive pills IRON AND TOTAL IRON BINDING CAPACITY Routine 11/11/2022 4:06 PM EDT Encounter for surveillance of contraceptive pills HEPATITIS B SURFACE ANTIGEN, EIA Routine 11/11/2022 4:06 PM EDT Encounter for surveillance of contraceptive pills HEPATITIS B CORE AB TOTAL Routine 11/11/2022 4:06 PM EDT Encounter for surveillance of contraceptive pills HEMOGLOBIN A1C Routine 11/11/2022 4:06 PM EDT Encounter for surveillance of contraceptive pills FERRITIN Routine 11/11/2022 4:06 PM EDT Encounter for surveillance of contraceptive pills BASIC METABOLIC PANEL Routine 11/11/2022 4:06 PM EDT Encounter for surveillance of contraceptive pills documented in this encounter Results * Culture, Urine, Routine (12/29/2022 10:36 AM EDT) Urine specimen obtained by clean catch procedure / Unknown 12/29/2022 10:36 AM EDT 12/29/2022 6:46 PM EDT Comment:[facility] - 12/31/2022 9:01 AM EDT Urine Culture Report Result Urine Culture 50,000 to 100,000 cfu/ml Urine Culture Mixed bacterial dm characteristic of Urine Culture urogenital contamination. Specimen Source: Urine clean catch us Dianne Boykin MD LAB MICROBIOLOGY - GENER AL ORDERABLES Final Result [facility] [address], [place] [phone] * Pap Smear (12/01/2022 12:00 AM EDT) 12/01/2022 12/02/2022 8:3 0 AM EDT [facility] - 12/17/2022 9:47 AM EDT ----- ------- Name: Yuni Oropeza ? Age/Sex: 32/F ? : 1990 Unit#: [id number] ?? Attend Dr: Nathalie Zambrano NP ?Re12/01/22 ?Status: DEP REF ? [facility] ? Disch: ? ----- ------- SPEC : [id number] ? RECD: 12/02/22 ? STATUS: ??SOUT ? REQ NUM: [id number] ? JAMSHID: 12/01/22-0000 ? SUBM DR: Nathalie Zambrano NP ? ENTERED: ??12/02/22-1302 ?SP TYPE: Pap Smr ?OTHR : ? ORDERED: ??Pap Smear, PAP path review ? Interpretation ?? General Category: ?? Epithelial cell abnormality. ?? Adequacy: ?Endocervical component present. ?? Interpretation: ?Atypical squamous cells of undetermined significance. ? HPV mRNA E6/E7: ?DETECTED ? This assay detects E6/E7 viral messenger RNA (mRNA) from 14 high-risk HPV types (16, 18, ?? 31, 33, 35, 39, 45, 51, 52, 56, 58, 59, 66, 68) ? HPV Type 16 RNA: ?Not Detected ?? HPV Type 18/45 RNA: ? DETECTED ? HPV testing performed by [facility], [place], [place]. ??See reference laboratory ?? portion of the EMR for entire report. ?Clinical Information LMP: Unknown date Previous PAP test: 10/2021, Unknown findings Other history: Hx of HPV ? Material Received ?? ThinPrep-Vaginal/Cervical ----- ------- Signed (signature on file) Yaritza Nava 12/17/22 0947 ? ----- ------- ? END OF REPORT ? us Nathalie Zambrano [facility] LAB CYTOLOGY ORDERABLES Final R esult [facility] [address] [place] [address] [phone] * (ABNORMAL) HPV mRNA E6/E7 w/Reflex to HPV Genotypes 16, 18/45 (12/01/2022 12:00 AM EDT) Pathologist [facility] HPV nRNA E6/E7 Detected(A ) Not Detected [facility] Comment:Methodology: Transcr iption-Mediated AmplificationThis assay detects E6/E7 viral messenger RNA (mRNA) from 14high-risk HPV types (16,18,31,33,35,39,45,51,52,56,58,59,66,68).Cervical sources are required for HPV testing.If a vaginal source from a patient who has had atotal hysterectomy with removal of cervix wassubmitted, please contact the testing laboratoryfor alternative testing options.For additional information, please refer [email or web address]/[email or web address](This link if provided for information/educational purposes only.)THIS TEST WAS PERFORMED AT:[facility] [place] [phone] HUSTON MD HPV 16 RNA NOT DETECTED NOT DETECTED [facility] HPV 18/45 RNA DETECTED(A ) NOT DETECTED [facility] Comment:Methodology: Transcr iption Mediated AmplificationCervical sources are required for HPV testing.If a vaginal source from a patient who has had atotal hysterectomy with removal of cervix wassubmitted, please contact the testing laboratoryfor alternative testing options.THIS TEST WAS PERFORMED AT:[facility] [place] [id number] HUSTON MD 12/01/2022 12/02/2022 8:3 0 AM EDT Nathalie Zambrano [employer]ENT[employer] LAB CYTOLOGY ORDERABLES Final R esult Performing Organization Address [facility] Co de Phone Number [facility] [address] [place] [phone] * Hepatitis C Antibody Reflex (11/11/2022 4:06 PM EDT) Hepatitis C Antibody Nonreactive Nonreactive [facility] Comment:Antibodies to HCV no t detected; does not exclude early acuteHCV infection. 11/11/2022 4:06 PM EDT 11/11/2022 4:06 PM EDT [facility] External Provider LAB BLO OD ORDERABLES Final Result Performing Organization Address [facility] de Phone Number [facility] [address] [place] [phone] * Hepatitis B surface antigen, EIA (11/11/2022 4:06 PM EDT) Hepatitis B Surface Ag Negative Negative [facility] 11/11/2022 4:06 PM EDT 11/11/2022 4:06 PM EDT [facility] External Provider LAB BLO OD ORDERABLES Final Result Performing Organization Address [facility] Co de Phone Number [facility] [address] [place] [phone] * HIV Ab/Ag ([place]) (11/11/2022 4:06 PM EDT) HIV AB/AG Nonreactive Nonreactive [facility] Comment:HIV-1 p24 Ag and/or HIV-1/HIV-2 Ab not detected.A test result that is nonreactive does not exclude thepossibility of exposure to or infection with HIV-1 and/orHIV-2. Nonreactive results in this assay for individualswith prior exposure to HIV-1 and/or HIV-2 may be due toantigen and antibody levels that are below the limit ofdetection of this assay.[employer] HIV Ag/Ab Combo assay result andsupplemental assay results should be interpreted inconjunction with the patient's clinical presentation,history and other laboratory results. If the results areinconsistent with clinical evidence, additional testing issuggested to confirm the result. 11/11/2022 4:06 PM EDT 11/11/2022 4:06 PM EDT [facility] External Provider LAB BLO OD ORDERABLES Final Result Performing Organization Address [facility] Co de Phone Number [facility] [address] [place] [phone] * Hepatitis B Core Antibody, Total (11/11/2022 4:06 PM EDT) Pathologist [facility] Hepatitis B Core Antibody Nonreactive Nonreactive [facility] 11/11/2022 4:06 PM EDT 11/11/2022 4:06 PM EDT [facility] External Provider LAB BLO OD ORDERABLES Final Result Performing Organization Address [facility] Co de Phone Number [facility] [address] [place] [address] [phone] * Hemoglobin A1c (11/11/2022 4:06 PM EDT) Pathologist [facility] Hemoglobin A1c 5.1 % [facility] Comment:Hemoglobin A1C Refer ence Range Adults: 4.8 - 6.0 % Non diabetic: < 6.0 % Goal: < 7.0 %Additional Action Suggested: > 8.0 %Note: Hemoglobin A1c results are invalid for patients with abnormal amounts of HbF. Blood transfusions may impact the HbA1c concentration in the patient sample. Estimated Average Glucose 100 mg/dL [facility] Comment:eAG = Estimated ave rage glucose which is %A1C expressed asaverage glucose, using the formula of the H7B-JfnzqkuYnzactx Glucose study (ADAG), Diabetes Care, Vol.31,#8,2007 11/11/2022 4:06 PM EDT 11/11/2022 4:06 PM EDT [facility] External Provider LAB BLO OD ORDERABLES Final Result Performing Organization Address [facility] de Phone Number [facility] [address] [place] [phone] * TSH W/Reflex to FT4 (11/11/2022 4:06 PM EDT) TSH reflex Free T4 0.77 0.32 - 4.0 uIU/mL [facility] 11/11/2022 4:06 PM EDT 11/11/2022 4:06 PM EDT [facility] External Provider LAB BLO OD ORDERABLES Final Result Performing Organization Address [facility] de Phone Number [facility] [address] [place] [phone] * Ferritin (11/11/2022 4:06 PM EDT) Ferritin 42 10 - 122 ng/mL [facility] 11/11/2022 4:06 PM EDT 11/11/2022 4:06 PM EDT [facility] External Provider LAB BLO OD ORDERABLES Final Result Performing Organization Address [facility] Co de Phone Number [facility] [address] [place] [phone] * Iron And Total Iron Binding Capacity (11/11/2022 4:06 PM EDT) Iron 126 30 - 160 mcg/dL [facility] Total Iron Binding Capacity 289 228 - 428 mcg/dL [facility] Percent Iron Saturation 44 15 - 50 % [facility] Unsaturated Iron Binding 163 ug/dL [facility] 11/11/2022 4:06 PM EDT 11/11/2022 4:06 PM EDT [facility] External Provider LAB BLO OD ORDERABLES Final Result [facility] [address] [place] [phone] * (ABNORMAL) Basic Metabolic Panel (11/11/2022 4:06 PM EDT) Sodium 140 135 - 145 mmol/L [facility] Potassium 4.0 3.3 - 5.1 mmol/L [facility] Chloride 108 96 - 108 mmol/L [facility] Carbon Dioxide 25 22 - 29 mmol/L [facility] Anion Gap 11(L) 12 - 20 [facility] Urea Nitrogen (BUN) 11 9 - 16 mg/dL [facility] Creatinine, Serum 0.68 0.5 - 1.4 mg/dL [facility] Estimated Glomerular Filt Rate >60 [facility] Comment:NOTE: For -Am erican individuals, multiply the result by 1.210.Chronic Kidney Disease: Estimated GFR < 60 mL/min/1.98f0Btbgyf Kidney Disease: Estimated GFR < 15 mL/min/1.73m2 Glucose 96 60 - 115 mg/dL [facility] Calcium 9.4 8.4 - 10.2 mg/dL [facility] 11/11/2022 4:06 PM EDT 11/11/2022 4:06 PM EDT [facility] External Provider LAB BLO OD ORDERABLES Final Result [facility] [address], [place] [phone] * (ABNORMAL) CBC auto differential (11/11/2022 4:06 PM EDT) White Blood Count 7.8 4.8 - 10.8 X10*3/uL [facility] Red Blood Count 4.61 4.20 - 5.50 X10*6/uL [facility] Hemoglobin 11.9(L) 12.0 - 16.0 g/dl [facility] Hematocrit 37.8 37.0 - 47.0 % [facility] Mean Corpuscular Volume 82.0 80.0 - 98.0 fL [facility] Mean Corpuscular Hemoglobin 25.8(L) 27.0 - 33.0 pg [facility] Mean Corpuscular HGB Conc 31.5 31.0 - 35.0 g/dl [facility] Red Cell Distribution Width 12.1 11.0 - 16.0 % [facility] Platelet Count 189 160 - 400 X10*3/uL [facility] Mean Platelet Volume 12.2 9.4 - 12.3 fL [facility] Neutrophils Percent Auto 54.1 45 - 73 % [facility] Imm Gran Pct Auto 0.3 0.0 - 0.4 % [facility] Lymphocytes Percent Auto 36.6 20 - 40 % [facility] Monocytes Percent Auto 7.0 2 - 11 % [facility] Eosinophils Percent Auto 1.4 0 - 4 % [facility] Basophils Percent Auto 0.6 0 - 2 % [facility] NRBC Pct Auto 0.0 0.0 - 0.2 /100WBC [facility] Neutrophils Absolute Auto 4.2 2.0 - 8.3 x10*3/uL [facility] Imm Gran Abs Auto 0.02 0.00 - 0.03 X10*3/uL [facility] Lymphocytes Absolute Auto 2.8 1.2 - 4.9 X10*3/uL [facility] Monocytes Absolute Auto 0.5 0.1 - 1.2 X10*3/uL [facility] Eosinophils Absolute Auto 0.1 0.0 - 0.4 X10*3/uL [facility] Basophils Absolute Auto 0.1 0.0 - 0.2 X10*3/uL [facility] NRBC Abs Auto 0.000 0.0 - 0.012 X10*3/uL [facility] 11/11/2022 4:06 PM EDT 11/11/2022 4:06 PM EDT us [facility] External Provider LAB BLO OD ORDERABLES Final Result [facility] [address] [place] [phone] documented in this encounter Visit Diagnoses Diagnosis Encounter for surveillance of contraceptive pills documented in this encounter Additional Health Concerns Assessment Noted Time PHQ-9 Depression Total Score: 0 06/18/19 23 10:11 AM EST documented as of this encounter Care Teams Polymerization Supervisor Relationship Specialty Start Date End Date Nathalie Zambrano FNP [address] [place] [phone] PCP - General Family Medicine 04/05/22 01/09/24 Louise Thomas MD [address] [place] [phone] PCP - General Internal Medicine 01/10/24 documented as of this encounter
--- OUTSIDE RECORDS SUMMARY | 2024-09-17 14:51 | XMS_ITS | Encounter Summary ---
Author Organization [employer] Address [address] [facility] [address] [place] [address] Care Team Providers Care Teletype Technician Name Role Phone Catina Agee MD Primary Care Provider Nathalie Torres LINDERMAN MACHINE OPERATOR Primary Care Provider [phone] Louise Thomas MD Primary Care Pro vider Encounter Details Date Type Department Care Team (Latest Contact Info) Description 08/03/2021 Abstract [facility] CONVERSIONS Dental, Provider, DDS Social History Tobacco Use Types Packs/Day Years Used Date Smoking Tobacco: Never Assessed Comments Unknown Sex and Gender Information Value Date Recorded Sex Assigned at Female 03/08/2022 10:29 AM EDT Legal Sex Female 10:29 AM EDT Gender Identity Female 03/08/2022 10:29 AM EDT Sexual Orientation Straight 03/08/2022 10 :29 AM EDT Travel History Travel Start Travel End [place] 08/25/2024 09/01/2024 documented as of this encounter Plan of Treatment Upcoming Encounters Date Type Department Care Team (Late st Contact Info) Description 10/04/2024 11:00 AM EDT Procedure Visit [facility] MEDIC[facility] [address], [place] [phone] Karina Hamilton CNM [address], [place] [phone] 11/14/2024 11:30 AM EDT Office Visit [facility] [address], [place] [phone] Louise Thomas MD [address] [place] [phone] documented as of this encounter Visit Diagnoses Not on filedocumented in this encounter Care Teams Teletype Technician Relationship Specialty Start Date End Date Catina Agee MD PCP - General Family Medicine 02/16/22 04/04/22 Nathalie Zambrano FNP [address] [place] [address] [phone] PCP - General Family Medicine 04/05/22 01/09/24 Louise Thomas MD [address] [place] [address] [phone] PCP - General Internal Medicine 01/10/24 documented as of this encounter
--- OUTSIDE RECORDS SUMMARY | 2024-09-17 14:51 | XMS_ITS | Referral Summary ---
Author Organization [facility] Address [address] [place] [address] Care Team Providers Care Take Off Man Name Role Phone Gisel Robbins Bill Primary Care Provider [phone] Allergies No known active allergies Medications NON FORMULARY control Active Cryselle, 28, 0.3-30 mg-mcg per tablet SMARTSI Tablet(s) By Mouth Every Morning Active traMADoL (ULTRAM) 50 mg tablet SMARTSI Tablet(s) By Mouth Every 6-8 Hours PRN 12/29/2022 Active Active Problems Problem Noted Date Diagnosed Date Cervical dysplasia 03/24/2023 Overview (03/24/2023): 12/02/22 pap - ASCUS +/HPV+, mRNA E6/E7, HPV 16 neg, 18/45 +,prior colpo 02/09/22 (neg biopsies) 03/24/23 colpo Social History Tobacco Use Types Packs/Day Years Used Date Smoking Tobacco: Never Smokeless Tobacco: Never Tobacco Cessation:Counseling Given: Not Answered Comments No Sex and Gender Information Value Date Recorded Sex Assigned at Female 03/27/2024 2:12 PM EST Legal Sex Female 4:48 PM EDT Gender Identity Not on file Sexual Orientation Not on file Last Filed Vital Signs Vital Sign Reading Time Taken Comments Blood Pressure 100/64 03/24/2023 2:00 PM EST Pulse - - Temperature - - Respiratory Rate - - Oxygen Saturation - - Inhaled Oxygen Concentration - - Weight 57.2 kg (126 lb) 03/24/2023 2:00 PM EST Height - - Body Mass Index - - Plan of Treatment Not on file Insurance [facility] Care Teams Take Off Man Relationship Specialty Start Date End Date [place], Gisel Khan [address] [place] [address] PCP - General Family Medicine 06/27/24
--- OUTSIDE RECORDS SUMMARY | 2024-09-17 14:51 | XMS_ITS | Encounter Summary ---
Author Organization [employer] Address [address] [facility] [address]t [place] [address] Care Team Providers Care Ultrasound Specialist Name Role Phone Louise Thomas MD Primary Care Pro vider Reason for Visit * Reason Onset Date Comments Med Refill 08/16/2024 Encounter Details Date Type Department Care Team (Late st Contact Info) Description 08/16/2024 Refill [facility] MEDICINE [address] [place] [address] Nathalie Zambrano FNP [address] [place] [address] Encounter for surveillance of contraceptive pills Social History Tobacco Use Types Packs/Day Years Used Date Smoking Tobacco: Never Passive Smoke Exposure: Never Smokeless Tobacco: Never Alcohol Use Standard Drinks/Week Comments Never 0 (1 standard drink = 0.6 oz pur e alcohol) Depression Answer Date Recorded Patient Health Questionnaire-9 Score 0 06/18/2022 Housing Stability Answer Date Recorded What is your housing situation today? I have itzel farris 08/24/[address] you li ve. Do you have problems with any of the following? None of the above 08/24/2023 Food Insecurity Answer Date Recorded Within the past 12 months, y ou worried that your food would run out before you got money to buy more: Never True 08/24/2023 Within the past 12 months,th e food you bought just didn't last and you didn't have enough money to get more: Never True Transportation Answer Date Recorded In the past 12 months, has l ack of transportation kept you from medical appts, meetings, work or from getting things needed for daily living? No 08/24/2023 Utilities Answer Date Recorded In the past 12 months, has t he electric, gas, oil or water company threatened to shut off services in your home? No 08/24/2023 Depression Answer Date Recorded Patient Health Questionnaire-2 Score 0 06/18/2022 Comments Unknown Sex and Gender Information Value Date Recorded Sex Assigned at Female 03/08/2022 10:29 AM EDT Legal Sex Female 10:29 AM EDT Gender Identity Female 03/08/2022 10:29 AM EDT Sexual Orientation Straight 03/08/2022 10 :29 AM EDT Travel History Travel Start Travel End [place] 08/25/2024 09/01/2024 documented as of this encounter Plan of Treatment Upcoming Encounters Date Type Department Care Team (Late st Contact Info) Description 10/04/2024 11:00 AM EDT Procedure Visit [facility] MEDICINE [address] [place] [phone] Karina Hamilton CNM [address] [place] [phone] 11/14/2024 11:30 AM EDT Office Visit [facility] MEDICINE [address] [place] [phone] Louise Thomas MD [address] [place] [phone] documented as of this encounter Visit Diagnoses Diagnosis Encounter for surveillance of contraceptive pills documented in this encounter Additional Health Concerns Assessment Noted Time PHQ-9 Depression Total Score: 0 06/18/19 23 10:11 AM EST documented as of this encounter Care Teams Ultrasound Specialist Relationship Specialty Start Date End Date Louise Thomas MD [address] [place] [address] [phone] PCP - General Internal Medicine 01/10/24 documented as of this encounter
--- OUTSIDE RECORDS SUMMARY | 2024-09-17 14:51 | XMS_ITS | Clinical Summary ---
Author Organization [facility] Address [address] [place] [address] Care Team Providers Care Painter Sign Maintenance Name Role Phone Gisel Robbins Primary Care Provider [phone] Allergies No known active allergies Medications NON [...] Mass Index - - Plan of Treatment Health Maintenance Due Date Last Done Comments Cervical Cancer Screening 1989 HPV and Pap Smear 1989 Hepatitis C Screening 1989 Pap Smear 1989 Hepatitis B Vaccines (2 of 3 - 19+ 3-dose series) 09/24/2022 08/27/2022 COVID-19 Vaccine (3 - 2023-2 5 season) 2024 08/02/2022, 07/12/2022 Alcohol/Substance Use Screening 05/09/2024 Depression Screening and Follow-Up 05/09/2024 Social Drivers of Health Annual Screening 05/09/2024 Influenza Vaccine (Season Ended) 2025 DTaP,Tdap,and Td Vaccines (3 - Td or Tdap) 09/09/2027 09/08/2017, 03/29/2016 RSV Vaccine (60+ years old and patients) (1 - 1-dose 75+ series) 2064 HIV Screening Completed 06/18/2022 Varicella Vaccines Completed 10/01/2022, 08/30/2022 Pneumococcal Vaccine: Pediatric (0-5 Years) and At-Risk Patients (6-50 Years) Aged Out No longer eligible based on patient's age to complete this topic Insurance [facility]/[place] [address] [place] [address] Care Teams Painter Sign Maintenance Relationship Specialty Start Date End Date Gisel Robbins [address] [place] [phone] PCP - General Family Medicine 06/27/24
--- OUTSIDE RECORDS SUMMARY | 2024-09-17 14:51 | XMS_ITS | Encounter Summary ---
Author Organization [employer] Address [address] [facility] 7t [place] [address] Care Team Providers Care Gill Box Fixer Name Role Phone Louise Thomas MD Primary Care Pro vider Reason for Visit * Reason Onset Date Comments Med Refill 04/10/2024 Encounter Details Date Type Department Care Team (Late st Contact Info) Description 04/10/2024 Refill [facility] [address] [place] [address] Nathalie Zambrano FNP [address] [place] [address] Encounter for surveillance of contraceptive pills Social [...] EDT Travel History Travel Start Travel End [place] 08/25/2024 09/01/2024 documented as of this encounter Plan of Treatment Upcoming Encounters Date Type Department Care Team (Late st Contact Info) Description 10/04/2024 11:00 AM EDT Procedure Visit [facility] [address] [place] [phone] Karina Hamilton CNM [address] [place] [phone] 11/14/2024 11:30 AM EDT Office Visit [facility] [address] [place] [address] Louise Thomas MD [address] [place] [phone] documented as of this encounter Visit Diagnoses Diagnosis Encounter for surveillance of contraceptive pills documented in this encounter Additional Health Concerns Assessment Noted Time PHQ-9 Depression Total Score: 0 06/18/19 23 10:11 AM EST documented as of this encounter Care Teams Gill Box Fixer Relationship Specialty Start Date End Date Louise Thomas MD [address] [place] [address] [phone] PCP - General Internal Medicine 01/10/24 documented as of this encounter
--- OUTSIDE RECORDS SUMMARY | 2024-09-17 14:51 | XMS_ITS | Clinical Summary ---
Author Organization [employer] Address [address] [facility] [address] 7[address] [place] [address] Care Team Providers Care Dividing Machine Operator Helper Name Role Phone Louise Thomas MD Primary Care Pro vider Allergies No known active allergies Medications terbinafine (LamISIL AT) 1 % cream Apply topically 2 times daily for 14 days. 15 g 09/18/19 25 025 Active norgestrel-ethin yl estradiol (Cryselle-28) 0.3-30 MG-MCG tabletIndication s:Encounter for surveillance of contraceptive pills Take 1 tablet by mouth Once per day. 84 tablet 2 09/18/19 25 Active Cryselle-28 0.3-30 MG-MCG tabletIndication s:Encounter for surveillance of contraceptive pills TAKE 1 TABLET BY MOUTH DAILY IN THE MORNING 84 tablet 3 12/27/19 24 025 Discontinued(R eorder (will not trigger notification to Pharmacy)) Active Problems Problem Noted Date Diagnosed Date Health care maintenance 09/01/2023 Assessment & Plan (09/01/2023 6:47 PM EDT): -T-spot 07/2023 Neg -Contraception: On cryselle -pap smear: hx of + HPV.abnormal pap --to repeat test 03/2024 has apt already w [facility]ER -Vaccines : hep B x1, COVID x2, -refuse today booster , tdap 2018, varicella x2 , HPV never -px today -labs x annual exam today -pt agreed to have STI testing including HIV to have for baseline -will call pt w results Cervical dysplasia 03/24/2023 Overview (09/01/2023): 12/02/22 pap - ASCUS +/HPV+, mRNA E6/E7, HPV 16 neg, 18/45 +,prior colpo 02/09/22 (neg biopsies) 03/24/23 colpo Encounters Date Type Department Care Team Description 09/17/2024 2:00 PM EDT Office Visit [address] [address] Louise Thomas MD Foot pain, bilateral (Primary Dx); Tinea pedis of both feet; Annual physical exam; Encounter for surveillance of contraceptive pills 09/17/2024 Travel 09/16/2024 Travel 09/14/[address] [address] Louise Thomas MD CHART PREP 09/11/2024 Patient Outreach [address] [address] Louise Thomas MD Pre-visit Planning (SDOH screening negative and Tobacco screening negative) 08/16/[address] [address] Nathalie Zambrano FNP Encounter for surveillance of contraceptive pills 07/17/[address] [address] Louise Thomas MD may recall 06/28/[address] [phone] Louise Thomas MD Referral from Last 3 Months Immunizations Name Administration Dates Next Due HPV 9-Valent 03/13/2024,10/11/2023,09/06/2023 Hep B, adult 08/27/2022 Pfizer Covid-19 Vaccine 12+ 07/12/2022 Pfizer Covid-19 Vaccine 12+ shiva-sucrose ([place] Cap) 08/02/2022 Tdap 09/08/2017,03/29/2016 Varicella 10/01/2022,08/30/2022 Family History Medical History Relation Name Comments Pancreatic cancer Maternal Grandmother Thyroid disease Mother Relation Name Status Comments Maternal Grandmother Mother Social History Tobacco Use Types Packs/Day Years Used Date Smoking Tobacco: Never Passive Smoke Exposure: Never Smokeless Tobacco: Never Alcohol Use Standard Drinks/Week Comments Never 0 (1 standard drink = 0.6 oz pur e alcohol) Depression Answer Date Recorded Patient Health Questionnaire-9 Score 0 09/17/2024 Patient Health Questionnaire-9 Score 0 09/17/2024 Last PHQ-9: Questionnaire Data Not on file 0 09/17/2024 Housing Stability Answer Date Recorded What is your housing situation today? I have itzel farris 09/11/[address] you li ve. Do you have problems with any of the following? None of the above 09/11/2024 Food Insecurity Answer Date Recorded Within the past 12 months, y ou worried that your food would run out before you got money to buy more: Never True 09/11/2024 Within the past 12 months,th e food you bought just didn't last and you didn't have enough money to get more: Never True 10/2024 Transportation Answer Date Recorded In the past 12 months, has l ack of transportation kept you from medical appts, meetings, work or from getting things needed for daily living? No 09/11/2024 Utilities Answer Date Recorded In the past 12 months, has t he electric, gas, oil or water company threatened to shut off services in your home? No 09/11/2024 Depression Answer Date Recorded Patient Health Questionnaire-2 Score 0 09/17/2024 Internet Access Answer Date Recorded Internet Access Q1 Yes 09/11/2024 Internet Access Q2 Not on file 09/11/2024 Comments Unknown Sex and Gender Information Value Date Recorded Sex Assigned at Female 03/08/2022 10:29 AM EDT Legal Sex Female 10:29 AM EDT Gender Identity Female 03/08/2022 10:29 AM EDT Sexual Orientation Straight 03/08/2022 10 :29 AM EDT Travel History Travel Start Travel End [place] 08/25/2024 09/01/2024 Last Filed Vital Signs Vital Sign Reading Time Taken Comments Blood Pressure 123/75 09/17/2024 2:12 PM EDT Pulse 85 09/17/2024 2:12 PM EDT Temperature 36.7 ??C (98.1 ??F) 09/17/2024 2:12 PM ED T Respiratory Rate 20 09/17/2024 2:12 PM EDT Oxygen Saturation 97% 09/17/2024 2:12 PM EDT Inhaled Oxygen Concentration - - Weight 57.5 kg (126 lb 12.8 oz) 09/17/2024 2:12 PM EDT Height 154.9 cm (5' 1 ) 09/17/2024 2:12 PM EDT Body Mass Index 23.96 09/17/2024 2:12 PM EDT Plan of Treatment Upcoming Encounters Date Type Department Care Team (Late st Contact Info) Description 10/04/2024 11:00 AM EDT Procedure Visit [address] [address] Karina Hamilton CNM [address] [place] [address] 11/14/2024 11:30 AM EDT Office Visit [address] [address] Louise Thomas MD [address] [place], [place] [phone] Health Maintenance Due Date Last Done Comments Dental Oral Exam 1989 Dental Prophylaxis 1989 Dental X-Ray: Bitewings 1990 Family Planning (PISQ) 2004 Hepatitis B Vaccines (2 of 3 - 19+ 3-dose series) 09/24/2022 08/27/2022 COVID-19 Vaccine ( - 2023-2 5 season) 2024 08/02/2022, 07/12/2022 Influenza Vaccine (#1) 2024 Cervical Cancer Screening 03/24/2024 HPV/Cotest 03/24/2024 12/01/2022, 10/23/2021, 10/23/2021 Pap Smear 03/24/2024 12/01/2022, 10/23/2021 Dental X-Ray: Full Mouth 07/08/2025 07/07/2022 SDOH Screening 09/11/2025 09/11/2024 Alcohol/Substance Use Screening 09/17/2025 09/17/2024 Depression Screening 09/17/2025 09/17/2024, 09/17/2024 Tobacco Screening 09/17/2025 09/17/2024 DTaP/Tdap/Td Vaccines (3 - T d or Tdap) 09/09/2027 09/08/2017, 03/29/2016 Zoster Vaccines (1 of 2) 2039 RSV Patients and Patients Aged 60 years or older (1 - 1-dose 75+ series) 2064 Colposcopy Completed 03/24/2023 HIV Screening Completed 09/01/2023, 11/11/2022, 06/18/2022 Hepatitis C Screening Completed 09/01/2023 , 11/11/2022 HPV Vaccines Completed 03/13/2024, 10/11/2023, 09/06/2023 HIB Vaccines Aged Out No longer eligi ble based on patient's age to complete this topic Hepatitis A Vaccines Aged Out No long er eligible based on patient's age to complete this topic IPV Vaccines Aged Out No longer eligi ble based on patient's age to complete this topic Meningococcal Vaccine Aged Out No braulio que eligible based on patient's age to complete this topic Pneumococcal Vaccine: Pediatrics (0 to 5 Years) and At-Risk Patients (6 to 49) Years) Aged Out No longer eligible b ased on patient's age to complete this topic RSV under 20 months Aged Out No longe r eligible based on patient's age to complete this topic Rotavirus Vaccines Aged Out No longer eligible based on patient's age to complete this topic Procedures Procedure Name Priority Date/Time Associated Diagnosis Comments HEPATITIS C AB W/REFL TO HCV RNA, QN, PCR Routine 09/01/2023 11:37 AM EDT Annual physical exam HIV 1/2 ANTIGEN/ANTIBODY, FOURTH GENERATION W/RFL Routine 09/01/2023 11:37 AM EDT Annual physical exam BIOPSY CERVIX Routine 03/24/2023 HPV MRNA E6/E7 REFLEX TO HPV 16, 18/45 Routine 12/01/2022 12:00 AM EDT Encounter for surveillance of contraceptive pills PAP SMEAR Routine 12/01/2022 12:00 AM EDT Encounter for surveillance of contraceptive pills PANORAMIC RADIOGRAPHIC IMAGE Routine 07/07/2022 1:30 PM EST Acute periodontal abscess Dental caries from Last 3 Months or Most Recently Relevant to Health Maintenance Results * Hepatitis C Antibody with Reflex to HCV, RNA, Quantitative, Real-Time PCR (09/01/2023 11:37 AM EDT) Hepatitis C Antibody Nonreactive Nonreactive [facility] Comment:Antibodies to HCV no t detected; does not exclude early acuteHCV infection. Blood Venous blood specimen / Unknown 09/01/2023 11:37 AM EDT 09/01/2023 1:30 PM EDT us Louise Ackerman MD LAB BLOOD ORDERAB LES Final Result [facility] [address] [place] [phone] * HIV-1/2 Antigen and Antibodies, Fourth Generation, with Reflexes (09/01/2023 11:37 AM EDT) HIV AB/AG Nonreactive Nonreactive [facility] Comment:HIV-1 p24 Ag and/or HIV-1/HIV-2 Ab not detected.A test result that is nonreactive does not exclude thepossibility of exposure to or infection with HIV-1 and/orHIV-2. Nonreactive results in this assay for individualswith prior exposure to HIV-1 and/or HIV-2 may be due toantigen and antibody levels that are below the limit ofdetection of this assay.The Afraxis HIV Ag/Ab Combo assay result andsupplemental assay results should be interpreted inconjunction with the patient's clinical presentation,history and other laboratory results. If the results areinconsistent with clinical evidence, additional testing issuggested to confirm the result. Blood Venous blood specimen / Unknown 09/01/2023 11:37 AM EDT 09/01/2023 1:30 PM EDT us Louise Ackerman MD LAB BLOOD ORDERAB LES Final Result [facility] [address] [place] [address] [phone] * Biopsy cervix (03/24/2023) us Historical Provider MD IN CLINIC/BEDSIDE ORDERAB LES Final Result * (ABNORMAL) HPV mRNA E6/E7 w/Reflex to HPV Genotypes 16, 18/45 (12/01/2022 12:00 AM EDT) HPV nRNA E6/E7 Detected(A ) Not Detected [facility] Comment:Methodology: Transcr iption-Mediated AmplificationThis assay detects E6/E7 viral messenger RNA (mRNA) from 14high-risk HPV types (16,18,31,33,35,39,45,51,52,56,58,59,66,68).Cervical sources are required for HPV testing.If a vaginal source from a patient who has had atotal hysterectomy with removal of cervix wassubmitted, please contact the testing laboratoryfor alternative testing options.For additional information, please refer tohttp://education.[employer]/faq/NOC151p6(This link if provided for information/educational purposes only.)THIS TEST WAS PERFORMED AT:[facility] [place] [phone] HUSTON MD HPV 16 RNA NOT DETECTED NOT DETECTED [facility] HPV 18/45 RNA DETECTED(A ) NOT DETECTED [facility] Comment:Methodology: Transcr iption Mediated AmplificationCervical sources are required for HPV testing.If a vaginal source from a patient who has had atotal hysterectomy with removal of cervix wassubmitted, please contact the testing laboratoryfor alternative testing options.THIS TEST WAS PERFORMED AT:[facility] [place] [phone] HUSTON MD 12/01/2022 12/02/2022 8:3 0 AM EDT Nathalie Zambrano CASTING TRUCKER LAB CYTOLOGY ORDERABLES Final R esult [facility] [address] [place] [address] [phone] * Pap Smear (12/01/2022 12:00 AM EDT) 12/01/2022 12/02/2022 8:3 0 AM EDT Narrative [facility] - 12/17/2022 9:47 AM EDT ----- ------- Name: Yuni Oropeza ? Age/Sex: 32/F ? : 1990 Unit#: [id number] ?? Attend Dr: Nathalie Zambrano TRAFFIC EXPERT ?Re12/01/22 ?Status: DEP REF ? Location: HO.HHCLNP ? Disch: ? ----- ------- SPEC : [id number] ? RECD: 12/02/22 ? STATUS: ??SOUT ? REQ NUM: [id number] ? JAMSHID: 12/01/22-0000 ? SUBM DR: Nathalie Zambrano TRAFFIC EXPERT ? ENTERED: ??12/02/22-1302 ?SP TYPE: Pap Smr [...] ? DETECTED ? HPV testing performed by [facility], [place], [place]. ??See reference laboratory ?? portion of the EMR for entire report. ?Clinical Information LMP: Unknown date Previous PAP test: 10/2021, Unknown findings Other history: Hx of HPV ? Material Received ?? ThinPrep-Vaginal/Cervical ----- ------- Signed (signature on file) Yaritza Nava 12/17/22 0947 ? ----- ------- ? END OF REPORT ? Nathalie Zambrano CASTING TRUCKER LAB CYTOLOGY ORDERABLES Final R esult [facility] [address] [place] [address] [phone] from Last 3 Months or Most Recently Relevant to Health Maintenance Insurance [facility] Care Teams Dividing Machine Operator Helper Relationship Specialty Start Date End Date Louise Thomas MD [address] [place] [address] [phone] PCP - General Internal Medicine 01/10/24
--- OUTSIDE RECORDS SUMMARY | 2024-09-17 14:51 | XMS_ITS | Clinical Summary ---
Author Organization [employer] [facility] Address [address] [place] [address] Care Team Providers Care Gas Booster Engineer Name Role Phone Unavailable Primary Care Provider Unavailabl e Social History Tobacco Use Types Packs/Day Years Used Date Smoking Tobacco: Never Assessed Comments Unknown Sex and Gender Information Value Date Recorded Sex Assigned at Not on file Legal Sex Female 8:52 PM EST Gender Identity Not on file Sexual Orientation Not on file Plan of Treatment Health Maintenance Due Date Last Done Comments DTaP,Tdap,and Td Vaccines (1 - Tdap) 2008 Hepatitis B Vaccines (1 of 3 - 19+ 3-dose series) 2008 Cervical Cancer Screening: P ap Smear 2010 Depression Screening 06/03/2023 HIV Screening 06/03/2023 Hepatitis C Screening 06/03/2023 Social Influencers of Health Screening 06/03/2023 COVID-19 Vaccine (2023-2 5 season) 2024 Influenza Vaccine (Season Ended) 2025 HIB Vaccines Aged Out No longer eligi ble based on patient's age to complete this topic HPV Vaccines Aged Out No longer eligi ble based on patient's age to complete this topic Hepatitis A Vaccines Aged Out No long er eligible based on patient's age to complete this topic IPV Vaccines Aged Out No longer eligi ble based on patient's age to complete this topic MMR Vaccines Aged Out No longer eligi ble based on patient's age to complete this topic Meningococcal ACWY Vaccine Aged Out N o longer eligible based on patient's age to complete this topic Meningococcal B Vaccine Aged Out No l onger eligible based on patient's age to complete this topic Pneumococcal Vaccine: Pediat rics (0 to 5 Years) and At-Risk Patients (6 to 64 Years) Aged Out No longer eligible b ased on patient's age to complete this topic RSV Immunization Patients Un jakub 20 months Aged Out No longer eligible b ased on patient's age to complete this topic Varicella Vaccines Aged Out No longer eligible based on patient's age to complete this topic
--- OUTSIDE RECORDS SUMMARY | 2024-09-17 14:52 | XMS_ITS | Encounter Summary ---
Author Organization [employer] Address [address] [facility] [address] [place] [address] Care Team Providers Care Network Control Technician Name Role Phone Louise Thomas MD Primary Care Pro vider Reason for Visit * Reason Onset Date Comments CHART PREP 09/14/2024 Encounter Details Date Type Department Care Team (Late st Contact Info) Description 09/14/2024 Telephone [facility] [address] [place], [place] [phone] Louise Thomas MD [address] [place] [address] CHART PREP Social History Tobacco Use Types Packs/Day Years [...] Recorded Patient Health Questionnaire-2 Score 0 06/18/2022 Internet Access Answer Date Recorded Internet Access Q1 Yes 09/11/2024 Internet Access Q2 Not on file 09/11/2024 Comments Unknown Sex and Gender Information Value Date Recorded Sex Assigned at Female 03/08/2022 10:29 AM EDT Legal Sex Female 10:29 AM EDT Gender Identity Female 03/08/2022 10:29 AM EDT Sexual Orientation Straight 03/08/2022 10 :29 AM EDT Travel History Travel Start Travel End [place] 08/25/2024 09/01/2024 documented as of this encounter Miscellaneous Notes * Telephone Encounter - Lynn Barrett [place] - 09/14/2024 11:52 AM EDT Chart Prep Labs: done From 08/31/24 Images: not applicable Referrals: not applicable Vaccines due: Hep B Screenings: pap smear and LMP Overdue care gaps: SBIRT, PHQ-9, LIBORIO-7, Disability screen, and Tobacco documented in this encounter Plan of Treatment Upcoming Encounters Date Type Department Care Team (Late st Contact Info) Description 10/04/2024 11:00 AM EDT Procedure Visit [facility] [address] [place] [address] Karina Hamilton CNM [address] [place] [address] 11/14/2024 11:30 AM EDT Office Visit [facility] [address] [place] [phone] Louise Thomas MD [address] [place] [address] documented as of this encounter Visit Diagnoses Not on filedocumented in this encounter Additional Health Concerns Assessment Noted Time PHQ-9 Depression Total Score: 0 06/18/19 23 10:11 AM EST documented as of this encounter Care Teams Network Control Technician Relationship Specialty Start Date End Date Louise Thomas MD [address] [place] [phone] PCP - General Internal Medicine 01/10/24 documented as of this encounter
--- OUTSIDE RECORDS SUMMARY | 2024-09-17 14:52 | XMS_ITS | Encounter Summary ---
Author Organization [employer] Address [address] [facility] [address] [place] [address] Care Team Providers Care Car Trimmer Name Role Phone Louise Thomas MD Primary Care Pro vider Encounter Details Date Type Department Care Team (Latest Contact Info) Description 09/16/2024 Travel Social History Tobacco Use Types Packs/Day Years [...] EDT Travel History Travel Start Travel End [place] 08/25/2024 09/01/2024 documented as of this encounter Plan of Treatment Upcoming Encounters Date Type Department Care Team (Late st Contact Info) Description 10/04/2024 11:00 AM EDT Procedure Visit [facility] [address] [place] [address] Karina Hamilton CNM [address] [place] [phone] 11/14/2024 11:30 AM EDT Office Visit [address] [address] Louise Thomas MD [address] [place] [phone] documented as of this encounter Visit Diagnoses Not on filedocumented in this encounter Additional Health Concerns Assessment Noted Time PHQ-9 Depression Total Score: 0 06/18/19 23 10:11 AM EST documented as of this encounter Care Teams Car Trimmer Relationship Specialty Start Date End Date Louise Thomas MD [address] [place] [phone] PCP - General Internal Medicine 01/10/24 documented as of this encounter
--- OUTSIDE RECORDS SUMMARY | 2024-09-17 14:52 | XMS_ITS | Encounter Summary ---
Author Organization [employer] Address [address] [facility] [address] 7[address] [place] [address] Care Team Providers Care Company Laborer Name Role Phone Louise Thomas MD Primary Care Pro vider Encounter Details Date Type Department Care Team (Latest Contact Info) Description 09/17/2024 Travel Social History Tobacco Use Types Packs/Day [...] EDT Travel History Travel Start Travel End [place] 08/25/2024 09/01/2024 documented as of this encounter Plan of Treatment Upcoming Encounters Date Type Department Care Team (Late st Contact Info) Description 10/04/2024 11:00 AM EDT Procedure Visit [facility] [address] [place] [address] Karina Hamilton CNM [address] [place] [phone] 11/14/2024 11:30 AM EDT Office Visit [address] [address] Louise Thomas MD [address] [place] [phone] documented as of this encounter Visit Diagnoses Not on filedocumented in this encounter Additional Health Concerns Assessment Noted Time PHQ-9 Depression Total Score: 0 09/18/19 25 2:13 PM EDT documented as of this encounter Care Teams Company Laborer Relationship Specialty Start Date End Date Louise Thomas MD [address] [place] [phone] PCP - General Internal Medicine 01/10/24 documented as of this encounter
--- OUTSIDE RECORDS SUMMARY | 2024-09-17 14:52 | XMS_ITS | Encounter Summary ---
Author Organization [employer] Address [address] [facility] [address] [place] [address] Care Team Providers Care Design Chief Name Role Phone Nathalie Zambrano Primary Care Provider [phone] Louise Thomas MD Primary Care Pro vider Encounter Details Date Type Department Care Team (Late st Contact Info) Description 01/14/2023 Orders Only [facility] [address] [place] [address] Nathalie Zambrano FNP [address] [place] [address] Other microscopic hematuria (Primary Dx); Abnormal cervical Papanicolaou smear, unspecified abnormal pap finding Social History Tobacco Use Types Packs/Day Years [...] EDT Travel History Travel Start Travel End [place] 08/25/2024 09/01/2024 documented as of this encounter Plan of Treatment Upcoming Encounters Date Type Department Care Team (Late st Contact Info) Description 10/04/2024 11:00 AM EDT Procedure Visit [facility] [address] [place] [address] Karina Hamilton CNM [address] [place] [address] 11/14/2024 11:30 AM EDT Office Visit [facility] [address] [place], [place] [phone] Louise Thomas MD [address] [place] [address] [phone] documented as of this encounter Visit Diagnoses Diagnosis Other microscopic hematuria- Primary Abnormal cervical Papanicolaou smear, unspecified abnormal pap finding documented in this encounter Additional Health Concerns Assessment Noted Time PHQ-9 Depression Total Score: 0 06/18/19 23 10:11 AM EST documented as of this encounter Care Teams Design Chief Relationship Specialty Start Date End Date Nathalie Zambrano FNP [address] [place] [phone] PCP - General Family Medicine 04/05/22 01/09/24 Louise Thomas MD [address] [place] [phone] PCP - General Internal Medicine 01/10/24 documented as of this encounter
--- OUTSIDE RECORDS SUMMARY | 2024-09-17 14:52 | XMS_ITS | Encounter Summary ---
Author Organization [employer] Address 75 [facility] 7t [place] [address] Care Team Providers Care Malter Operator Name Role Phone Nathalie Zambrano Primary Care Provider [phone] Louise Thomas MD Primary Care Pro vider Reason for Visit * Reason Onset Date Comments Med Refill 03/14/2023 Encounter Details Date Type Department Care Team (Late st Contact Info) Description 03/14/2023 Refill [facility] [address] [place] [address] Nathalie Zambrano FNP [address] [place], [place] [phone] Encounter for surveillance of contraceptive pills Social [...] housing situation today? I have itzel farris 03/03/[address] you li ve. Do you have problems with any of the following? None of the above 03/03/2023 Food Insecurity Answer Date Recorded Within the past 12 months, y ou worried that your food would run out before you got money to buy more: Never True 03/03/2023 Within the past 12 months,th e food you bought just didn't last and you didn't have enough money to get more: Never True Transportation Answer Date Recorded In the past 12 months, has l ack of transportation kept you from medical appts, meetings, work or from getting things needed for daily living? No 03/03/2023 Utilities Answer Date Recorded In the past 12 months, has t he [employer] gas, oil or water company threatened to shut off services in your home? No 03/03/2023 Depression Answer Date Recorded Patient Health Questionnaire-2 Score 0 06/18/2022 Comments Unknown Sex and Gender Information Value Date Recorded Sex Assigned at Female 03/08/2022 10:29 AM EDT Legal Sex Female 10:29 AM EDT Gender Identity Female 03/08/2022 10:29 AM EDT Sexual Orientation Straight 03/08/2022 10 :29 AM EDT Travel History Travel Start Travel End [place] 08/25/2024 09/01/2024 documented as of this encounter Plan of Treatment Upcoming Encounters Date Type Department Care Team (Late st Contact Info) Description 10/04/2024 11:00 AM EDT Procedure Visit [facility] [address] [place] [phone] Karina Hamilton CNM [address] [place] [address] 11/14/2024 11:30 AM EDT Office Visit [facility] [address] [place] [phone] Louise Thomas MD [address] [place] [address] documented as of this encounter Visit Diagnoses Diagnosis Encounter for surveillance of contraceptive pills documented in this encounter Additional Health Concerns Assessment Noted Time PHQ-9 Depression Total Score: 0 06/18/19 23 10:11 AM EST documented as of this encounter Care Teams Malter Operator Relationship Specialty Start Date End Date Nathalie Zambrano FNP [address] [place] [phone] PCP - General Family Medicine 04/05/22 01/09/24 Louise Thomas MD [address] [place] [phone] PCP - General Internal Medicine 01/10/24 documented as of this encounter
--- OUTSIDE RECORDS SUMMARY | 2024-09-17 14:52 | XMS_ITS | Encounter Summary ---
Author Organization [employer] Address 75 [facility] [address] [place] [address] Care Team Providers Care General Car Supervisor Yard Name Role Phone Louise Thomas MD Primary Care Pro vider Reason for Referral * Consultation (Routine) - Pending Review Specialty Diagnoses / Procedures Referred By Cristiana nicholson Referred To Contact Podiatry Diagnoses Foot pain, bilateral Louise Thomas MD [address] [place] [address] Phone: tel: fax: Referral ID Status Reason Start Date Expiration Date Visits Requested Visits Authorized [id number] Pending Review Specialty Services Required 09/17/2024 09/17/2025 1 1 Encounter Details Date Type Department Care Team (Latest Contact Info) Description 09/17/2024 2:00 PM EDT Office Visit [facility] [address] [place] [address] [phone] Louise Thomas MD [address] [place] [address] [phone] Foot pain, bilateral (Primary Dx); Tinea pedis of both feet; Annual physical exam; Encounter for surveillance of contraceptive pills Social [...] EDT Travel History Travel Start Travel End [place] 08/25/2024 09/01/2024 documented as of this encounter Last Filed Vital Signs Vital Sign Reading [...] Mass Index 23.96 09/17/2024 2:12 PM EDT documented in this encounter Plan of Treatment Upcoming Encounters Date Type Department Care Team (Late st Contact Info) Description 10/04/2024 11:00 AM EDT Procedure Visit [facility] [address] [place] [address] [phone] Karina Hamilton CNM [address] [place] [phone] 11/14/2024 11:30 AM EDT Office Visit [facility] [address] [place] [phone] Louise Thomas MD [address] [place] [address] [phone] Scheduled Orders Name Type Priority Associated Diagnoses Orde r Schedule CBC Lab Routine Annual physical exam Expected: 09/17/2024 (Approximate), Expires: 09/17/2025 Chlamydia/N. Gonorrhoeae RNA, TMA, Urogenitial Microbiology Routine Annual physical exam Expected: 09/17/2024 (Approximate), Expires: 09/17/2025 Comprehensive Metabolic Panel Lab Routine Annual physical exam Expected: 09/17/2024 (Approximate), Expires: 09/17/2025 Hemoglobin A1c Lab Routine Annual physical exam Expected: 09/17/2024 (Approximate), Expires: 09/17/2025 Hepatitis B Core Antibody, Total Lab Routine Annual physical exam Expected: 09/17/2024 (Approximate), Expires: 09/17/2025 Hepatitis B Surface Antibody, Qualitative Lab Routine Annual physical exam Expected: 09/17/2024 (Approximate), Expires: 09/17/2025 Hepatitis B surface antigen, EIA Lab Routine Annual physical exam Expected: 09/17/2024 (Approximate), Expires: 09/17/2025 Hepatitis C Antibody with Reflex to HCV, RNA, Quantitative, Real-Time PCR Lab Routine Annual physical exam Expected: 09/17/2024 (Approximate), Expires: 09/17/2025 HIV-1/2 Antigen and Antibodies, Fourth Generation, with Reflexes Lab Routine Annual physical exam Expected: 09/17/2024 (Approximate), Expires: 09/17/2025 Lipid Panel, Standard Lab Routine Annual physical exam Expected: 09/17/2024 (Approximate), Expires: 09/17/2025 Syphilis Screen Lab Routine Annual physical exam Expected: 09/17/2024 (Approximate), Expires: 09/17/2025 TSH with Reflex to Free T4 Lab Routine Annual physical exam Expected: 09/17/2024 (Approximate), Expires: 09/17/2025 Measles, Mumps, and Rubella (MMR) Antibodies??(IgG) Panel, Immune Status Lab Routine Annual physical exam Expected: 09/17/2024 (Approximate), Expires: 09/17/2025 XR Foot 3+ Views Right Imaging Routine Foot pain, bilateral Expected: 09/17/2024, Expires: 09/17/2025 Scheduled Referrals Name Type Priority Associated Diagnoses Orde r Schedule Referral to Podiatry Outpatient Referral Routine Foot pain, bilateral Expected: 09/17/2024 (Approximate), Expires: 09/17/2025 documented as of this encounter Visit Diagnoses Diagnosis Foot pain, bilateral- Primary Tinea pedis of both feet Annual physical exam Routine general medical examination at a health care facility Encounter for surveillance of contraceptive pills documented in this encounter Additional Health Concerns Assessment Noted Time PHQ-9 Depression Total Score: 0 09/18/19 25 2:13 PM EDT documented as of this encounter Care Teams General Car Supervisor Yard Relationship Specialty Start Date End Date Louise Thomas MD [address] [place] [phone] PCP - General Internal Medicine 01/10/24 documented as of this encounter
== END 2024-09-17 14:50 | disposition home or self-care (01) ==
LOC: HO.HHCX 14:49
PROVIDERS: Visit Provider Student in an Organized Health Care Education/Training Program
DX: M79.671 Pain in right foot (principal)
CPT/HCPCS: 73630

== ENCOUNTER → 2024-09-17 14:49 | Outpatient (BNV) | payer OTHER, SELFPAY | PROVIDERS: Visit Provider Radiology Diagnostic Radiology | DX: M79.674 Pain in right toe(s) (principal) | CPT/HCPCS: 73630 ==

== ENCOUNTER 2024-10-04 16:14 | Outpatient (REF) | payer OTHER, SELFPAY ==
[2024-10-10 11:40] LABS: HPV Genotype 16 Negative (Negative); HPV Genotype 18 Negative (Negative); HPV High Risk Positive (Negative)
== END 2024-10-04 16:15 | disposition home or self-care (01) ==
LOC: HO.HHCLNP 16:14
PROVIDERS: Visit Provider Advanced Practice Midwife
DX: Z12.4 Encounter for screening for malignant neoplasm of cervix (principal); R87.610 Atypical squamous cells of undetermined significance on cytologic smear of cervix (ASC-US); R87.810 Cervical high risk human papillomavirus (HPV) DNA test positive
CPT/HCPCS: 87626; 88175

== ENCOUNTER 2024-11-08 09:27 | Outpatient (REF) | payer OTHER, SELFPAY ==
--- OUTSIDE RECORDS SUMMARY | 2024-11-08 09:46 | XMS_ITS | Clinical Summary ---
Author Organization [facility] Address [address] [place] [address] Care Team Providers Care Channel Sales Manager Name Role Phone Gisel Robbins Primary Care Provider [phone] Allergies No known active allergies Medications NON [...] of Health Annual Screening 05/09/2024 Influenza Vaccine (#1) 2025 DTaP,Tdap,and Td Vaccines (3 - Td or Tdap) 09/09/2027 09/08/2017, 03/29/2016 RSV Vaccine (60+ years old and patients) (1 - 1-dose 75+ series) 2064 HIV Screening Completed 06/18/2022 Varicella Vaccines Completed 10/01/2022, 08/30/2022 Pneumococcal Vaccine: Pediatric (0-5 Years) and At-Risk Patients (6-50 Years) Aged Out No longer eligible based on patient's age to complete this topic Insurance [facility] HS/[place] [address] [place] [address] Care Teams Channel Sales Manager Relationship Specialty Start Date End Date Gisel Robbins [address] [place] [phone] PCP - General Family Medicine 06/27/24
--- OUTSIDE RECORDS SUMMARY | 2024-11-08 09:46 | XMS_ITS | Encounter Summary ---
Author Organization [employer] Address [address] [address] Care Team Providers Care Paper Cap Machine Operator Name Role Phone Louise Thomas MD Primary Care Pro vider Reason for Visit * Reason Onset Date Comments Med Refill 04/10/2024 Encounter Details Date Type Department Care Team (Late st Contact Info) Description 04/10/2024 Refill [facility] [address] [place] [address] Nathalie Zambrano FNP [address] [place] [address] Encounter for surveillance of contraceptive pills Social [...] Orientation Straight 03/08/2022 10 :29 AM EDT documented as of this encounter Plan of Treatment Upcoming Encounters Date Type Department Care Team (Late st Contact Info) Description 11/14/2024 11:30 AM EDT Office Visit [facility] [address] [place] [phone] Louise Thomas MD [address] [place] [address] documented as of this encounter Visit Diagnoses Diagnosis Encounter for surveillance of contraceptive pills documented in this encounter Additional Health Concerns Assessment Noted Time PHQ-9 Depression Total Score: 0 06/18/19 23 10:11 AM EST documented as of this encounter Care Teams Paper Cap Machine Operator Relationship Specialty Start Date End Date Louise Thomas MD [address] [place] [phone] PCP - General Internal Medicine 01/10/24 documented as of this encounter
--- OUTSIDE RECORDS SUMMARY | 2024-11-08 09:46 | XMS_ITS | Clinical Summary ---
Author Organization 175 [facility] Address [address] [place] [address] Phone Care Team Providers Care Paralegal Internship Name Role Phone Physician, Pcp Unknown Primary Care Provider Kristina vailable Social History Tobacco Use Types Packs/Day Years Used Date Smoking Tobacco: Never Assessed Comments Unknown Sex and Gender Information Value Date Recorded Sex Assigned at Not on file Legal Sex Female 8:52 PM EST Gender Identity Not on file Sexual Orientation Not on file Plan of Treatment Upcoming Encounters Date Type Department Care Team ([facility] Contact Info) Description 12/12/2024 2:15 PM EDT Consult Orthopedic Surgery - [place] [phone] [phone] Neo Harrison, DPM [address] [address] Health Maintenance Due Date Last Done Comments [...] patient's age to complete this topic Insurance MEDICAID - [place] [facility] [employer] [employer] Care Teams Paralegal Internship Relationship Specialty Start Date End Date Physician, Pcp Unknown PCP - General 09/21/24
[2024-11-08 11:25] LABS: Hematocrit 37.3 % (37.0-47.0); Hemoglobin 11.9 g/dl (12.0-16.0); Mean Corpuscular HGB Conc 31.9 g/dl (31.0-35.0); Mean Corpuscular Hemoglobin 26.5 pg (27.0-33.0); Mean Corpuscular Volume 83.1 fL (80.0-98.0); NRBC Abs Auto 0.000 X10*3/uL (0.0-0.012); NRBC Pct Auto 0.0 /100WBC (0.0-0.2); Platelet Count 216 X10*3/uL (160-400); Red Blood Count 4.49 X10*6/uL (4.20-5.50); White Blood Count 7.5 X10*3/uL (4.8-10.8)
[2024-11-08 11:39] LABS: Hemoglobin A1C 112.3605 umol/L; Total Hemoglobin (HGBA1C) 3269.3090 umol/L
[2024-11-08 11:41] LABS: Alanine Aminotransferase 29 U/L (0-31); Albumin Level 4.4 g/dL (3.5-5.0); Alkaline Phosphatase 66 U/L (39-117); Anion Gap 11 (12-20); Aspartate Amino Transferase 26 U/L (5-31); Blood Urea Nitrogen 8 mg/dL (9-16); Calcium 9.2 mg/dL (8.4-10.2); Carbon Dioxide 26 mmol/L (22-29); Chloride 104 mmol/L (96-108); Cholesterol 131 mg/dL (<200); Estimated Glomerular Filt Rate > 60; HDL Cholesterol 48 mg/dL (>40); Potassium 3.9 mmol/L (3.3-5.1); Sodium 137 mmol/L (135-145); Total Protein 7.4 g/dL (6.5-8.0); Triglycerides 78 mg/dL (<150)
[2024-11-08 11:48] LABS: Syphilis Screen Nonreactive (Nonreactive)
[2024-11-08 11:49] LABS: HBS Num1 18.63 mIU/mL (0-7.99); HBc Num1 0.09 S/CO (0.00-0.79); HBsAGNum1 0.42 S/CO (0.00-0.99); HIV Num 1 0.04 S/CO (0.00-0.99); Hepatitis B Surface Antigen Negative (Negative); ~HepC Num1 0.19 S/CO (0.00-0.79); ~Hepatitis B Surface Antibody REACTIVE (Nonreactive); ~Hepatitis C Antibody Nonreactive (Nonreactive)
[2024-11-08 14:20] LABS: CT PCR Urine NOT DETECTED (Not Detect.); NG PCR Urine NOT DETECTED (Not Detect.)
[2024-11-12 20:13] LABS: Rubeola IgG (Measles) 42.10 AU/mL
== END 2024-11-08 09:28 | disposition home or self-care (01) ==
LOC: HO.HHCL 09:27
PROVIDERS: PCP Student in an Organized Health Care Education/Training Program; Visit Provider Student in an Organized Health Care Education/Training Program
DX: Z00.00 Encounter for general adult medical examination without abnormal findings (principal); Z11.3 Encounter for screening for infections with a predominantly sexual mode of transmission; Z11.4 Encounter for screening for human immunodeficiency virus [HIV]; Z11.59 Encounter for screening for other viral diseases
CPT/HCPCS: 36415; 80053; 80061; 83036; 84443; 85027; 86704; 86706; 86735; 86762; 86765; 86780; 86803; 87340; 87389; 87491; 87591

== ENCOUNTER 2025-02-28 09:26 | Outpatient (REF) | payer OTHER, SELFPAY ==
--- OUTSIDE RECORDS SUMMARY | 2025-02-26 13:00 | XMS_ITS | Encounter Summary ---
Author Organization [employer] Address 75 [facility] [address] [address] Care Team Providers Care Bird Sitter Name Role Phone Louise Thomas MD Primary Care Pro vider Encounter Details Date Type Department Care Team (Late st Contact Info) Description 02/26/2025 1:00 PM EDT Office Visit [facility] [address] [place], [place] [phone] TarKandis mariscal, OD [address] [place] [address] Vitreous syneresis of both eyes (Primary Dx); Hypermetropia, bilateral Social History Tobacco Use Types Packs/Day Years [...] Access Q2 Not on file 09/11/2024 Comments No Sex and Gender Information Value Date Recorded Sex Assigned at Female 03/08/2022 10:29 AM EDT Legal Sex Female 10:29 AM EDT Gender Identity Female 03/08/2022 10:29 AM EDT Sexual Orientation Straight 03/08/2022 10 :29 AM EDT documented as of this encounter Progress Notes * Kandis Cortés, FERN - 02/26/2025 1:00 PM EDT Eye Care Progress Note Patient ID: Yuni Hooper is a 34 y.o. female. HPI Patient reports floaters both eyes (OU) - longstanding. Patient denies flashes. Today is the patient's first eye exam. Last edited by Kandis Cortés, FERN on 02/26/2025 1:24 PM. Current Medications[1] Medical History[2] Surgical History[3] Family History[4] Tobacco Use: Low Risk (02/26/2025) Tobacco Smoking Tobacco Use: Never Smokeless Tobacco Use: Never Passive Exposure: Never Allergies[5] ROS Positive for: Eyes Negative for: Constitutional, Gastrointestinal, Neurological, Skin, Genitourinary, Musculoskeletal,HENT, Endocrine, Cardiovascular, Respiratory, Psychiatric, Allergic/Imm, Heme/Lymph Last edited by Kandis Cortés OD on 02/26/2025 12:59 PM. Base Eye Exam Visual Acuity (Snellen - Linear) Right Left Dist sc 20/20 20/20 Tonometry (iCare , 1:14 PM) Right Left Pressure 15 15 Pupils Pupils APD Right PERRL None Left PERRL None Visual Lira (Counting fingers) Left Right Full Full Extraocular Movement Right Left Full Full Neuro/Psych Oriented x3: Yes Mood/Affect: Normal Dilation Both eyes: 1.0% tropicamide @ 1:14 PM Slit Lamp and Fundus Exam External Exam Right Left External Normal Normal Slit Lamp Exam Right Left Lids/Lashes Clean and clear Clean and clear Conjunctiva/Sclera White and quiet White and quiet Cornea Clear Clear Anterior Chamber Deep and quiet, angles open Deep and quiet, angles open Iris Flat, round Flat, round Lens Clear Clear Fundus Exam Right Left Vitreous syneresis syneresis Disc [place] and healthy, large ONH [place] and healthy, large ONH C/D Ratio Vertical 0.70 0.70 C/D Ratio Horizontal 0.70 0.70 Macula Flat, even pigmentation Flat, even pigmentation Vessels AV 2/3, normal course and caliber AV 2/3, normal course and caliber Periphery No holes/tears/detachments 360 No holes/tears/detachments 360 Refraction Manifest Refraction Sphere Cylinder Right +0.25 Sphere Left +0.25 Sphere Assessment and Plan Diagnoses and all orders for this visit: Vitreous syneresis of both eyes - Patient educated on vitreous syneresis and normal floaters. Discussed symptoms of retinal detachment and to RTC immediately if flashes/new floaters/curtains over vision occur Hypermetropia, bilateral - No specs needed RTC in 2 years for comprehensive eye exam or sooner as needed Kandis Cortés, OD 02/26/2025, 1:34 PM [1] Current Outpatient Medications Medication Sig Dispense Refill Ascorbic Acid (vitamin C) 250 MG tablet Take 1 tablet (250 mg) by mouth 3 (three) times a week. 12 tablet 2 docusate sodium (Colace) 100 MG capsule Take 1 tab po bid prn constipation 60 capsule 3 ferrous gluconate (Fergon) 324 (38 Fe) MG tablet Take 1 tablet (324 mg) by mouth 3 (three) times a week. 12 tablet 2 norgestrel-ethinyl estradiol (Cryselle-28) 0.3-30 MG-MCG tablet Take 1 tablet by mouth Once per day. 84 tablet 2 psyllium (Metamucil Smooth Texture) 58.6 % powder Take 5.12 g (3 g of fiber) by mouth 2 times daily. 283 g 2 No current facility-administered medications for this visit. [2] History reviewed. No pertinent past medical history. [3] Past Surgical History: Procedure Laterality Date BREAST LUMPECTOMY Right benign FOOT SURGERY Bilateral 3 surgeries in each foot [4] Family History Problem Relation Name Age of Onset Thyroid disease Mother Pancreatic cancer Maternal Grandmother 60 - 69 Breast cancer Neg Hx Colon cancer Neg Hx Ovarian cancer Neg Hx [5] No Known Allergies documented in this encounter Plan of Treatment Not on file documented as of this encounter Visit Diagnoses Diagnosis Vitreous syneresis of both eyes- Primary Hypermetropia, bilateral documented in this encounter Additional Health Concerns Assessment Noted Time PHQ-9 Depression Total Score: 0 09/18/19 25 2:13 PM EDT documented as of this encounter Care Teams Bird Sitter Relationship Specialty Start Date End Date Louise Thomas MD [address] [place] [phone] PCP - General Internal Medicine 01/10/24 documented as of this encounter
--- OUTSIDE RECORDS SUMMARY | 2025-02-28 10:33 | XMS_ITS | Encounter Summary ---
Author Organization [employer] Address 75 [facility] [address] [address] Care Team Providers Care Chemical Engineering Technician Name Role Phone Louise Thomas MD Primary Care Pro vider Encounter Details Date Type Department Care Team (Latest Contact Info) Description 02/26/2025 Travel Social History Tobacco Use Types Packs/Day [...] as of this encounter Plan of Treatment Not on file documented as of this encounter Visit Diagnoses Not on filedocumented in this encounter Additional Health Concerns Assessment Noted Time PHQ-9 Depression Total Score: 0 09/18/19 25 2:13 PM EDT documented as of this encounter Care Teams Chemical Engineering Technician Relationship Specialty Start Date End Date Louise Thomas MD [address] [place] [phone] PCP - General Internal Medicine 01/10/24 documented as of this encounter
--- OUTSIDE RECORDS SUMMARY | 2025-02-28 10:33 | XMS_ITS | Clinical Summary ---
Author Organization [facility] Address [address] [place] [address] Care Team Providers Care Vice President Industrial Relations Name Role Phone Gisel Robbins Primary Care Provider [phone] Allergies No known active allergies Medications NON [...] 3 - 19+ 3-dose series) 09/24/2022 08/27/2022 Alcohol/Substance Use Screening 05/09/2024 Depression Screening and Follow-Up 05/09/2024 Social Drivers of Health Annual Screening 05/09/2024 COVID-19 Vaccine (3 - 2024-2 6 season) 2025 08/02/2022, 07/12/2022 Influenza Vaccine (#1) 2025 DTaP,Tdap,and Td Vaccines (3 - Td or Tdap) 09/09/2027 09/08/2017, 03/29/2016 RSV Vaccine (60+ years old and patients) (1 - 1-dose 75+ series) 2064 HIV Screening Completed 06/18/2022 Varicella Vaccines Completed 10/01/2022, 08/30/2022 Pneumococcal Vaccine: Pediatric (0-5 Years) and At-Risk Patients (6-50 Years) Aged Out No longer eligible based on patient's age to [place] [id number] [facility] HS/[place] [address] [place] [address] Care Teams Vice President Industrial Relations Relationship Specialty Start Date End Date Gisel Robbins [address] [place] [phone] PCP - General Family Medicine 06/27/24
--- OUTSIDE RECORDS SUMMARY | 2025-02-28 10:33 | XMS_ITS | Encounter Summary ---
Author Organization [employer] Address [address] [address] Care Team Providers Care Bobbin Coil Winder Name Role Phone Nathalie Zambrano Primary Care Provider [phone] Louise Thomas MD Primary Care Pro vider Encounter Details Date Type Department Care Team (Late st Contact Info) Description 01/14/2023 Orders Only [facility] [address] [place] [address] Nathalie Zambrano FNP [address] [place] [address] Other microscopic hematuria (Primary Dx); Abnormal cervical [...] documented as of this encounter Care Teams Bobbin Coil Winder Relationship Specialty Start Date End Date Nathalie Zambrano FNP [address] [place] [address] PCP - General Family Medicine 04/05/22 01/09/24 Louise Thomas MD [address] [place] [address] PCP - General Internal Medicine 01/10/24 documented as of this encounter
--- OUTSIDE RECORDS SUMMARY | 2025-02-28 10:33 | XMS_ITS | Clinical Summary ---
Author Organization [employer] Address [address] [place] [phone] Care Team Providers Care Weld Fitter Name Role Phone Louise Thomas MD Primary Care Pro vider Allergies No known active allergies Medications norgestrel-ethiny l estradiol (Cryselle-28) 0.3-30 MG-MCG tabletIndications :Encounter for surveillance of contraceptive pills Take 1 tablet by mouth Once per day. 84 tablet 2 09/18/19 25 Active ferrous gluconate (Fergon) 324 (38 Fe) MG tablet Take 1 tablet (324 mg) by mouth 3 (three) times a week. 12 tablet 2 11/15/19 25 026 Active Ascorbic Acid (vitamin C) 250 MG tablet Take 1 tablet (250 mg) by mouth 3 (three) times a week. 12 tablet 2 11/15/19 25 026 Active docusate sodium (Colace) 100 MG capsule Take 1 tab po bid prn constipation 60 capsule 3 11/15/19 25 Active psyllium (Metamucil Smooth Texture) 58.6 % powder Take 5.12 g (3 g of fiber) by mouth 2 times daily. 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 -Vaccines : hep B x1, COVID x2, -refuse today booster , tdap 2017, varicella x2 , HPV never -px today -labs x annual exam today -pt agreed to have STI testing including HIV to have for baseline -will call pt w results Cervical dysplasia 03/24/2023 Overview (09/01/2023): 12/02/22 pap - ASCUS +/HPV+, mRNA E6/E7, HPV 16 neg, 18/45 +,prior colpo 02/09/22 (neg biopsies) 03/24/23 colpo Encounters Date Type Department Care Team Description 02/26/2025 1:00 PM EDT Office Visit [facility] [address] [place] [address] Kandis Cortés, OD Vitreous syneresis of both eyes (Primary Dx); Hypermetropia, bilateral 02/26/2025 Refill [facility] [address] [place] [address] Louise Thomas MD Encounter for surveillance of contraceptive pills 02/26/2025 Travel from Last 3 Months Immunizations Immunization Administration Dates Next Due HPV 9-Valent 03/13/2024,10/11/2023,09/06/2023 Hep B, adult 08/27/2022 Pfizer Covid-19 Vaccine 12+ 07/12/2022 Pfizer Covid-19 Vaccine 12+ shiva-sucrose ([place]ol[place] Cap) 08/02/2022 Tdap 09/08/2017,03/29/2016 Varicella 10/01/2022,08/30/2022 Family History Medical History Relation Name Comments Pancreatic cancer Maternal Grandmother Thyroid disease Mother Breast cancer Neg Hx Colon cancer Neg Hx Ovarian cancer Neg Hx Relation Name Status Comments Maternal Grandmother Mother Social History Tobacco Use Types Packs/Day Years Used Date Smoking Tobacco: Never Passive Smoke Exposure: Never Smokeless Tobacco: Never Tobacco Cessation:Counseling Given: Not Answered Alcohol Use Standard Drinks/Week Comments Never 0 [...] Q2 Not on file 09/11/2024 Comments No Intention Date Recorded No desire to become (finding) 0 10/04/2024 Sex and Gender Information Value Date Recorded Sex Assigned at Female 03/08/2022 10:29 AM EDT Legal Sex Female 10:29 AM EDT Gender Identity Female 03/08/2022 10:29 AM EDT Sexual Orientation Straight 03/08/2022 10 :29 AM EDT Last Filed Vital Signs Vital Sign Reading Time Taken Comments Blood Pressure 106/58 11/14/2024 12:01 PM EDT Pulse 82 11/14/2024 12:01 PM EDT Temperature 36.4 C (97.5 F) 11/14/2024 12:01 PM EDT Respiratory Rate 20 11/14/2024 12:0 1 PM EDT Oxygen Saturation 99% 11/14/2024 12: 01 PM EDT Inhaled Oxygen Concentration - - Weight 57.5 kg (126 lb 12.8 oz) 025 12:01 PM EDT Height 154.9 cm (5' 1 ) 11/14/2024 12:0 1 PM EDT Body Mass Index 23.96 11/14/2024 12:01 PM EDT Plan of Treatment Health Maintenance Due Date Last Done Comments Dental Oral Exam 1990 Dental Prophylaxis 1990 Dental X-Ray: Bitewings 1990 Hepatitis B Vaccines (2 of 3 - 19+ 3-dose series) 09/24/2022 08/27/2022 COVID-19 Vaccine ( - 2024- season) 2025 08/02/2022, 07/12/2022 Influenza Vaccine (#1) 2025 Dental X-Ray: Full Mouth 07/08/2025 07/07/2022 SDOH Screening 09/11/2025 09/11/2024 Alcohol/Substance Use Screening 09/17/2025 09/17/2024 Depression Screening 09/17/2025 09/17/2024, 09/18/19 Disability Screening 09/17/2025 09/17/2024 Family Planning (PISQ) 10/04/2025 10/04/2024 Cervical Cancer Screening 11/30/2025 HPV/Cotest 11/30/2025 10/04/2024, 11/07, 10/23/2021, Additional history exists Pap Smear 11/30/2025 10/04/2024, 11/07, 10/23/2021 Tobacco Screening 02/26/2026 02/26/2025 DTaP/Tdap/Td Vaccines (3 - Td or Tdap) 09/09/2027 09/08/2017, 03/29/2016 Zoster Vaccines (1 of 2) 2039 RSV Patients and Patients Aged 60 years or older (1 - 1-dose 75+ series) 2064 HPV Vaccines Completed 03/13/2024, 0608/2023, 09/06/2023 HIV Screening Completed 11/08/2024, 0409/2023, 11/11/2022, Additional history exists Hepatitis C Screening Completed 11/08/2024 , 09/01/2023, 11/11/2022 Colposcopy Completed 11/30/2024, 03/24/2023 HIB Vaccines Aged Out No longer eligi [...] Years) and At-Risk Patients (6 to 49) Years Aged Out No longer eligible based on patient's age to complete this topic RSV under 20 months Aged Out No longe r eligible based on patient's age to complete this topic Rotavirus Vaccines Aged Out No longer eligible based on patient's age to complete this topic Procedures Procedure Name Priority Date/Time Associated Diagnosis Comments COLPOSCOPY Routine 11/30/2024 HEPATITIS C AB W/REFL TO HCV RNA, QN, PCR Routine 11/08/2024 9:31 AM EDT Annual physical exam HIV 1/2 ANTIGEN/ANTIBODY, FOURTH GENERATION W/RFL Routine 11/08/2024 9:31 AM EDT Annual physical exam HPV DNA, LOW/HIGH RISK Routine 10/04/2024 10:50 AM EDT PAP SMEAR Routine 10/04/2024 10:50 AM EDT Cervical cancer screening PANORAMIC RADIOGRAPHIC IMAGE Routine 07/07/2022 1:30 PM EST Acute periodontal abscess Dental caries from Last 3 Months or Most Recently Relevant to Health Maintenance Results * Colposcopy (11/30/2024) Anna Rizo - 11/30/2024 Colposcopy completed on 11/30/2024, results in care everywhere under labs labeled tissue exam us Historical Provider MD IN CLINIC/BEDSIDE ORDERAB LES Final Result * Hepatitis C Antibody with Reflex to HCV, RNA, Quantitative, Real-Time PCR (11/08/2024 9:31 AM EDT) Hepatitis C Antibody Nonreactive Nonreactive [facility] Comment:Antibodies to HCV no t detected; does not exclude early acuteHCV infection. Blood Venous blood specimen / Unknown 11/08/2024 9:31 AM EDT 11/08/2024 11:02 AM EDT Louise Ackerman MD LAB BLOOD ORDERAB LES Final Result Performing Organization Address [facility]/ZIP Co de Phone Number [facility] [address] [place] [phone] * HIV-1/2 Antigen and Antibodies, Fourth Generation, with Reflexes (11/08/2024 9:31 AM EDT) Pathologist [facility] HIV AB/AG Nonreactive Nonreactive [facility] Comment:HIV-1 p24 Ag and/or HIV-1/HIV-2 Ab not detected.A test result that is nonreactive does not exclude thepossibility of exposure to or infection with HIV-1 and/orHIV-2. Nonreactive results in this assay for individualswith prior exposure to HIV-1 and/or HIV-2 may be due toantigen and antibody levels that are below the limit ofdetection of this assay.The [employer] HIV Ag/Ab Combo assay result andsupplemental assay results should be interpreted inconjunction with the patient's clinical presentation,history and other laboratory results. If the results areinconsistent with clinical evidence, additional testing issuggested to confirm the result. Blood Venous blood specimen / Unknown 11/08/2024 9:31 AM EDT 11/08/2024 11:02 AM EDT us Louise Ackerman MD LAB BLOOD ORDERAB LES Final Result [facility] [address] [place] [phone] * (ABNORMAL) HPV DNA, Low/High Risk (10/04/2024 10:50 AM EDT) HPV High Risk Positive(A) Negative [facility] HPV Genotype 16 Negative Negative [facility] HPV Genotype 18 Negative Negative [facility] Comment:HPV testing performe d at [facility] (CLIA#[id number]), [address] [place] [phone].Testing for HPV was performed using the Bryanna VIOLA 6800system. The presence of HPV in the female genital tract isassociated with a number of diseases, including cervicalcarcinoma. The HPV DNA high risk pool tests for HPV 31, 33,35, 39, 45, 51, 52, 56, 58, 59, 66 and 68. The testing forHPV 16 and 18 genotypes has also been performed. A positiveresult indicates detection of nucleic acid sequences fromone or more subtypes, whereas a negative result indicatessuch sequences were not detected. 10/04/2024 10:5 0 AM EDT 10/05/2024 10:35 AM EDT Justo ADKINS LAB BLOOD ORDERABLES Mary gooden Result [facility] [address] [place] [phone] * Pap Smear (10/04/2024 10:50 AM EDT) Swab 10/04/2024 10:5 0 AM EDT 10/05/2024 10:35 AM EDT Narrative [facility] - 10/10/2024 5:49 PM EDT ----- ------- Name: Yuni Oropeza Age/Sex: 34/F : 1990 Unit#: [id number] Attend Dr: JUSTO PIEDRA CNM Re10/04/24 Status: DEP REF Location: [facility] Disch: ----- ------- SPEC : [id number] RECD: 10/05/24-5 STATUS: ESDRAS VILLALOBOS NUM: [id number] JAMSHID: 10/04/24-1050 [facility] DR: JUSTO PIEDRA CNM ENTERED: 10/05/24-1048 SP TYPE: Pap Smr OTHR DR: ORDERED: Pap Smear, PAP path review Interpretation General Category: Epithelial cell abnormality. Adequacy: Endocervical component present. Interpretation: Atypical squamous cells of undetermined significance. Abundant acute inflammation. HPV High Risk: Positive HPV Genotyping 16: Negative HPV Genotyping 18: Negative Clinical Information LMP: Unknown date Previous PAP test: 2022, ASCUS, HPV pos. colpo neg Material Received ThinPrep-Cervical PAP Disclaimer As of February 29, 2024, the technical services to include automated prescreening performed by the ThinPrep Imaging System, PAP screening and HPV testing will be performed at [facility] (CLIA #[id number]), [address] [place] [address]. Testing for HPV was performed using the AppLovinAS 6800 system. The presence of HPV in the female genital tract is associated with a number of diseases, including cervical carcinoma. The HPV DNA high risk pool tests for HPV 31, 33, 35, 39, 45, 51, 52, 56, 58, 59, 66 and 68. The testing for HPV 16 and 18 genotypes has also been performed. A positive result indicates detection of nucleic acid sequences from one or more subtypes, whereas a negative result indicates such sequences were not detected. All professional services are performed by [facility] ([address] [place], [place] [id number]; ; CLIA #[id number]). The PAP Test is a screening procedure with the inherent possibility of both false negative and false positive results. Results should be interpreted in the context of historic and current clinical findings. Reliability of the PAP Test is enhanced by performing the test on a regular repetitive basis. CONTINUED ON NEXT PAGE ----- ------- Name: Yuni Oropeza Age/Sex: 34/F : 1990 Unit#: [id number] Attend Dr: JUSTO PIEDRA CNM Re10/04/24 Status: DEP [facility] Disch: ----- ------- SPEC : [id number] RECD: 10/05/24-1034 STATUS: ESDRAS VILLALOBOS NUM: [id number] JAMSHID: 10/04/24-[address]: JUSTO PIEDRA CNM ENTERED: 10/05/24-1047 SP TYPE: Pap Smr ЕКАТЕРИНА DR: ORDERED: Pap Smear, PAP path review ----- ------- Signed (signature on file) Yaritza Elijah 10/10/24 1749 ----- ------- END OF REPORT Justo Piedra [facility] CYTOLOGY ORDERABLES F inal Result [facility] [address] [place] [phone] from Last 3 Months or Most Recently Relevant to Health Maintenance Insurance [place] [id number] Care Teams Weld Fitter Relationship Specialty Start Date End Date Louise Thomas MD [address] [place] [phone] PCP - General Internal Medicine 01/10/24
--- OUTSIDE RECORDS SUMMARY | 2025-02-28 10:33 | XMS_ITS | Encounter Summary ---
Author Organization [employer] Address [address] [address] Care Team Providers Care Patrol Agent Name Role Phone Louise Thomas MD Primary Care Pro vider Reason for Visit * Reason Onset Date Comments Med Refill 08/16/2024 Encounter Details Date Type Department Care Team (Late st Contact Info) Description 08/16/2024 Refill [facility] [address] [place] [address] Nathalie Zambrano FNP [address] [place] [address] Encounter for surveillance of contraceptive pills Social [...] documented as of this encounter Care Teams Patrol Agent Relationship Specialty Start Date End Date Louise Thomas MD [address] [place] [phone] PCP - General Internal Medicine 01/10/24 documented as of this encounter
--- OUTSIDE RECORDS SUMMARY | 2025-02-28 10:33 | XMS_ITS | Encounter Summary ---
Author Organization [employer] Address [address] [address] Care Team Providers Care Crucible Furnace Tender Name Role Phone Nathalie Zambrano Primary Care Provider [phone] Louise Thomas MD Primary Care Pro vider Reason for Visit * Reason Onset Date Comments Med Refill 03/14/2023 Encounter Details Date Type Department Care Team (Late st Contact Info) Description 03/14/[address] [facility] [address] [place] [address] Nathalie Zambrano FNP [address] [place], [place] [phone] Encounter for surveillance of contraceptive pills Social [...] documented as of this encounter Care Teams Crucible Furnace Tender Relationship Specialty Start Date End Date Nathalie Zambrano FNP [address] [place] [address] PCP - General Family Medicine 04/05/22 01/09/24 Louise Thomas MD [address] [place] [address] PCP - General Internal Medicine 01/10/24 documented as of this encounter
--- OUTSIDE RECORDS SUMMARY | 2025-02-28 10:33 | XMS_ITS | Encounter Summary ---
Author Organization [facility] Address [address] [place] [address] Care Team Providers Care Forging Dies Final Finisher Name Role Phone Physician, Pcp Unknown Primary Care Provider Kristina vailable Encounter Details Date Type Department Care Team (Latest Contact Info) Description 11/30/2024 Lab Requisition [facility] [address] [facility] [place] [address] Branden Miller MD [address] [phone] Cervical high risk human papillomavirus (HPV) DNA test positive Social History Tobacco Use Types Packs/Day Years Used Date Smoking Tobacco: Never Assessed Comments Unknown Sex and Gender Information Value Date Recorded Sex Assigned at Not on file Legal Sex Female 8:52 PM EST Gender Identity Not on file Sexual Orientation Not on file documented as of this encounter Plan of Treatment Upcoming Encounters Date Type Department Care Team (Late st Contact Info) Description 04/24/2025 8:00 AM EST Consult Orthopedic [facility] [place] [address] [phone] Neo Harrison DPM [address] [phone] 04/26/2025 12:45 PM EST Hospital Encounter [facility] Main OR [address] [place] [phone] Neo Harrison DPM [address] [phone] 04/26/2025 12:45 PM EST - 04/26/2025 2:30 PM EST Surgery [facility] Main OR [address] [place] [phone] Neo Harrison DPM [address] [phone] REPAIR HAMMER TOE RIGHT [59097 (CPT ) +1 more] 05/08/2025 9:00 AM EST Office Visit [facility]opedic [facility] [place] [address] [phone] Neo Harrison DPM [address] [phone] Scheduled Procedures Name Priority Associated Diagnoses Date/Ti ok REPAIR HAMMER TOE Acquired hammer toe of right foot Contracture of joint of right foot 04/26/2025 12:45 PM EST documented as of this encounter Procedures Procedure Name Priority Date/Time Associated Diagnosis Comments TISSUE EXAM Routine 11/30/2024 Cervical high risk human papillomavirus (HPV) DNA test positive documented in this encounter Results * Tissue Exam (11/30/2024) Final Diagnosis Endocervix, curettage: - Fragments of endocervical glandular mucosa and few superficial fragments of squamous epithelium with few associated neutrophils. - Mucin containing numerous neutrophils is also present. - No squamous intraepithelial lesion identified. 12/03/2024 12:46 PM EDT [facility] Clinical Information R87.810 ECC ASCUS HPV+ 12/03/2024 12:46 PM EDT [facility]) [facility] Gross Description A. Endocervix, curettings: Labeled with the patient's name and information. Received in formalin is a 0.2 cm aggregate of a cloudy mucoid substance admixed with scant possible portillo-white soft tissue fragments. The specimen is submitted in toto in a mesh bag in one cassette, multiple pieces, x 2. Please note the specimen is minute and may not survive processing. VICENTA 12/03/2024 12:46 PM EDT [facility] Disclaimer Unless otherwise specified, all tissue is 10% NB formalin fixed and paraffin embedded. 12/03/2024 12:46 PM EDT [facility] Tissue Endocervical structure / Unknown 11/30/2024 11/30/2024 1:55 PM EDT us Branden Miller MD LAB PATHOLOGY ORDERABLES Final Result [facility] [address] [place] [address], documented in this encounter Visit Diagnoses Diagnosis Cervical high risk human papillomavirus (HPV) DNA test positive Acquired hammer toe of right foot Contracture of joint of right foot documented in this encounter Care Teams Forging Dies Final Finisher Relationship Specialty Start Date End Date Physician, Pcp Unknown PCP - General 09/21/24 documented as of this encounter
--- OUTSIDE RECORDS SUMMARY | 2025-02-28 10:33 | XMS_ITS | Clinical Summary ---
Author Organization 175 [facility] Address [address] [place] [address] Phone Care Team Providers Care Painting Department Supervisor Name Role Phone Physician, Pcp Unknown Primary Care Provider Kristina vailable Active Problems Problem Noted Date Diagnosed Date Acquired hammer toe of right foot 12/12/2024 Contracture of joint of right foot 12/12/2024 Encounters Date Type Department Care Team Description 01/14/2025 Telephone Orthopedic [facility] [address] [phone] Neo Harrison DPM 01/14/2025 Telephone Orthopedic [facility] [address] [phone] Mary Singh 12/12/2024 2:15 PM EDT Consult Orthopedic [facility] [address] [phone] Neo Harrison DPM Right foot pain (Primary Dx); Bilateral foot pain; Acquired hammer toe of right foot; Contracture of joint of right foot; Tailor's bunionette, right; Club foot of both lower extremities 11/30/2024 Lab Requisition [facility] Lab [address] [facility] [place] [phone] Branden Miller MD Cervical high risk human papillomavirus (HPV) DNA test positive from Last 3 Months Social History Tobacco Use Types Packs/Day Years Used Date Smoking Tobacco: Never Assessed Comments Unknown Sex and Gender Information Value Date Recorded Sex Assigned at Not on file Legal Sex Female 8:52 PM EST Gender Identity Not on file Sexual Orientation Not on file Plan of Treatment Upcoming Encounters Date Type Department Care Team ([facility] st Contact Info) Description 04/24/2025 8:00 AM EST Consult Orthopedic Surgery [facility] [address] [phone] Neo Harrison DPM [address] [phone] 04/26/2025 12:45 PM EST Hospital Encounter [facility] Main OR [address] [place] [phone] Neo Harrison DPM [address] [phone] 04/26/2025 12:45 PM EST - 04/26/2025 2:30 PM EST Surgery [facility] OR [address] [place] [phone] Neo Harrison DPM [address] [phone] REPAIR HAMMER TOE RIGHT [15033 (CPT ) +1 more] 05/08/2025 9:00 AM EST Office Visit Orthopedic Surgery [facility] [address] [phone] Neo Harrison, [place] [address] [phone] Scheduled Procedures Name Priority Associated Diagnoses Date/Ti me REPAIR HAMMER TOE Acquired hammer toe of right foot Contracture of joint of right foot 04/26/2025 12:45 PM EST Health Maintenance Due Date Last Done Comments Hepatitis B Vaccines (2 of 3 - 19+ 3-dose series) 09/24/2022 08/27/2022 Social Influencers of Health Screening 06/03/2023 Depression Screening 05/09/2024 COVID-19 Vaccine (3 - 2024-2 6 season) 2025 08/02/2022, 07/12/2022 Influenza Vaccine (#1) 2025 DTaP,Tdap,and Td Vaccines (3 - Td or Tdap) 09/09/2027 09/08/2017, 03/29/2016 Cervical Cancer Screening: P ap Smear 10/05/2027 10/04/2024 Cholesterol Screening (Lipid Panel) 11/08/2029 11/08/2024 RSV Immunization Adult Patients (1 - 1-dose 75+ series) 2064 Varicella Vaccines Aged Out 10/01/2022, 08/30/2022 No longer eligible based on patient's age to complete this topic HPV Vaccines Completed 03/13/2024, 10/11/2023, 09/06/2023 HIV Screening Completed 11/08/2024 Hepatitis C Screening Completed 11/08/2024 HIB Vaccines Aged Out No longer eligi [...] 5 Years) and At-Risk Patients (6 to 49 Years) Aged Out No longer eligible b ased on patient's age to complete this topic RSV Immunization Patients Under 20 months Aged Out No longer eligible b ased on patient's age to complete this topic Procedures Procedure Name Priority Date/Time Associated Diagnosis Comments XR FOOT 3+ VIEWS RIGHT Routine 12/12/2024 2:54 PM EDT Right foot pain TISSUE EXAM Routine 11/30/2024 Cervical high risk human papillomavirus (HPV) DNA test positive from Last 3 Months Results * XR Foot 3+ Views Right (12/12/2024 2:54 PM EDT) Anatomical Region Laterality Modality Lower Extremities, Foot Right Computed Radiography Narrative 12/12/2024 5:18 PM EDT Right foot 3 views 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 - Mucin containing numerous neutrophils is also present. - No squamous intraepithelial lesion identified. 12/03/2024 12:46 PM EDT [facility] Clinical Information R87.810 ECC ASCUS HPV+ 12/03/2024 12:46 PM EDT [facility] Gross Description A. Endocervix, curettings: [...] survive processing. VICENTA 12/03/2024 12:46 PM EDT [facility] Disclaimer Unless otherwise specified, all tissue is 10% NB formalin fixed and paraffin embedded. 12/03/2024 12:46 PM EDT [facility] Tissue Endocervical structure / Unknown 11/30/2024 11/30/2024 1:55 PM EDT Branden Miller MD LAB PATHOLOGY ORDERABLES Final Result [facility] [address] [place] [address], [place] [phone] from Last 3 Months Insurance [place]ICAID - [place] [facility] [employer] Care Teams Painting Department Supervisor Relationship Specialty Start Date End Date Physician, Pcp Unknown PCP - General 09/21/24
--- OUTSIDE RECORDS SUMMARY | 2025-02-28 10:33 | XMS_ITS | Encounter Summary ---
Author Organization [employer] Address [address] [place] [phone] Care Team Providers Care Senior Sharepoint Architect Name Role Phone Nathalie Zambrano Primary Care Provider [phone] Louise Thomas MD Primary Care Pro vider Encounter Details Date Type Department Care Team (Late st Contact Info) Description 11/03/2022 Orders Only [facility] MEDICINE [address] [place], [place] [phone] Nathalie Zambrano FNP [address] [place], [place] [phone] Encounter for surveillance of contraceptive pills Social [...] Orientation Straight 03/08/2022 10 :29 AM EDT COVID-19 Exposure Response Date Recorded In the last 10 days, have yo u been in contact with someone who was confirmed or suspected to have Coronavirus/COVID-19? No / Unsure 11/03/2022 10:19 AM EDT documented as of this encounter Plan of Treatment Not on file documented as of this encounter Procedures Procedure [...] 10:36 AM EDT 12/29/2022 6:46 PM EDT Comment:[facility] LABS - 12/31/2022 9:01 AM EDT Urine Culture Report Result Urine Culture 50,000 to 100,000 cfu/ml Urine Culture Mixed bacterial dm characteristic of Urine Culture urogenital contamination. Specimen Source: Urine clean catch us Dianne Boykin MD LAB MICROBIOLOGY - GENER AL ORDERABLES Final Result [facility] [address] [place] [phone] * Pap Smear (12/01/2022 12:00 AM EDT) 12/01/2022 12/02/2022 8:3 0 AM EDT [facility]S - 12/17/2022 9:47 AM EDT ----- ------- Name: Yuni Oropeza Age/Sex: 32/F : 1990 Unit#: [id number] Attend Dr: Nathalie Zambrano HOUSEMAID Re12/01/22 Status: DEP [facility] ----- ------- SPEC : [id number] RECD: 12/02/22 STATUS: ESDRAS VILLALOBOS NUM: [id number] JAMSHID: 12/01/22-[address]: Nathalie Zambrano HOUSEMAID ENTERED: 12/02/22-1302 SP TYPE: Pap Smr OTHR DR: ORDERED: Pap Smear, PAP path review Interpretation General Category: Epithelial cell abnormality. Adequacy: Endocervical component present. Interpretation: Atypical squamous cells of undetermined significance. HPV mRNA E6/E7: DETECTED This assay detects E6/E7 viral messenger RNA (mRNA) from 14 high-risk HPV types (16, 18, 31, 33, 35, 39, 45, 51, 52, 56, 58, 59, 66, 68) HPV Type 16 RNA: Not Detected HPV Type 18/45 RNA: DETECTED HPV testing performed by [facility], [place], [place]. See reference laboratory portion of the EMR for entire report. Clinical Information LMP: Unknown date Previous PAP test: 10/2021, Unknown findings Other history: Hx of HPV Material Received ThinPrep-Vaginal/Cervical ----- ------- Signed (signature on file) Yaritza Nava 12/17/22 0947 ----- ------- END [facility] REPORT [facility] ORDERABLES Final R esult [facility] [address] [place] [phone] * (ABNORMAL) HPV mRNA E6/E7 w/Reflex to HPV Genotypes 16, 18/45 (12/01/2022 12:00 AM EDT) HPV nRNA E6/E7 Detected(A ) Not Detected [facility] Comment:Methodology: Transcr iption-Mediated AmplificationThis assay detects E6/E7 viral messenger RNA (mRNA) from 14high-risk HPV types (16,18,31,33,35,39,45,51,52,56,58,59,66,68).Cervical sources are required for HPV testing.If a vaginal source from a patient who has had atotal hysterectomy with removal of cervix wassubmitted, please contact the testing laboratoryfor alternative testing options.For additional information, please refer [email or web address].[employer]/faq/RON501w6(This link if provided for information/educational purposes only.)THIS TEST WAS PERFORMED AT:[employer] [facility] [place] [id number] HUSTON MD HPV 16 RNA NOT DETECTED NOT DETECTED [facility] HPV 18/45 RNA DETECTED(A ) NOT DETECTED [facility] Comment:Methodology: Transcr iption Mediated AmplificationCervical sources are required for HPV testing.If a vaginal source from a patient who has had atotal hysterectomy with removal of cervix wassubmitted, please contact the testing laboratoryfor alternative testing options.THIS TEST WAS PERFORMED AT:[facility] [place] [phone] HUSTON MD 12/01/2022 12/02/2022 8:3 0 AM EDT Nathalie Ordonezas SOLAR INSTALLATION FOREMAN LAB CYTOLOGY ORDERABLES Final R esult Performing Organization Address [facility] Co de Phone Number [facility] [address] [place] [phone] * Hepatitis C Antibody Reflex (11/11/2022 4:06 PM EDT) Hepatitis C Antibody Nonreactive Nonreactive [facility] Comment:Antibodies to HCV no t detected; does not exclude early acuteHCV infection. 11/11/2022 4:06 PM EDT 11/11/2022 4:06 PM EDT [facility] External Provider LAB BLO OD ORDERABLES Final Result Performing Organization Address [facility] Co de Phone Number [facility] [address] [place] [phone] * Hepatitis B surface antigen, EIA (11/11/2022 4:06 PM EDT) Hepatitis B Surface Ag Negative Negative [facility] 11/11/2022 4:06 PM EDT 11/11/2022 4:06 PM EDT [facility] External Provider LAB BLO OD ORDERABLES Final Result Performing Organization Address [facility] Co de Phone Number [facility] [address] [place] [phone] * HIV Ab/Ag (RHINA HAYNES) (11/11/2022 4:06 PM EDT) HIV AB/AG Nonreactive Nonreactive [facility] Comment:HIV-1 p24 Ag and/or HIV-1/HIV-2 Ab not detected.A test result that is nonreactive does not exclude thepossibility of exposure to or infection with HIV-1 and/orHIV-2. Nonreactive results in this assay for individualswith prior exposure to HIV-1 and/or HIV-2 may be due toantigen and antibody levels that are below the limit ofdetection of this assay.The [employer] Outside Sales Representative HIV Ag/Ab Combo assay result andsupplemental assay results should be interpreted inconjunction with the patient's clinical presentation,history and other laboratory results. If the results areinconsistent with clinical evidence, additional testing issuggested to confirm the result. 11/11/2022 4:06 PM EDT 11/11/2022 4:06 PM EDT [facility] External Provider LAB BLO OD ORDERABLES Final Result Performing Organization Address [facility] Co de Phone Number [facility] [address] [place] [phone] * Hepatitis B Core Antibody, Total (11/11/2022 4:06 PM EDT) Hepatitis B Core Antibody Nonreactive Nonreactive [facility] 11/11/2022 4:06 PM EDT 11/11/2022 4:06 PM EDT [facility] External Provider LAB BLO OD ORDERABLES Final Result Performing Organization Address [facility] de Phone Number [facility] [address] [place] [phone] * Hemoglobin A1c (11/11/2022 4:06 PM EDT) Hemoglobin A1c 5.1 % [facility] Comment:Hemoglobin A1C Refer ence Range Adults: 4.8 - 6.0 % Non diabetic: < 6.0 % Goal: < 7.0 %Additional Action Suggested: > 8.0 %Note: Hemoglobin A1c results are invalid for patients with abnormal amounts of HbF. Blood transfusions may impact the HbA1c concentration in the patient sample. Estimated Average Glucose 100 mg/dL [facility] Comment:eAG = Estimated ave rage glucose which is %A1C expressed asaverage glucose, using the formula of the I6H-KpnbxwrNcqixaw Glucose study (ADAG), Diabetes Care, Vol.31,#8,2007 11/11/2022 4:06 PM EDT 11/11/2022 4:06 PM EDT [facility] External Provider LAB BLO OD ORDERABLES Final Result Performing Organization Address [facility] Co de Phone Number [facility] [address] [place] [phone] * TSH W/Reflex to FT4 (11/11/2022 4:06 PM EDT) TSH reflex Free T4 0.77 0.32 - 4.0 uIU/mL [facility] 11/11/2022 4:06 PM EDT 11/11/2022 4:06 PM EDT [facility] External Provider LAB BLO OD ORDERABLES Final Result Performing Organization Address [facility] Co de Phone Number [facility] [address] [place] [phone] * Ferritin (11/11/2022 4:06 PM EDT) Ferritin 42 10 - 122 ng/mL [facility] 11/11/2022 4:06 PM EDT 11/11/2022 4:06 PM EDT [facility] External Provider LAB BLO OD ORDERABLES Final Result Performing Organization Address [facility] Co de Phone Number [facility] [address] [place] [phone] * Iron And Total Iron Binding Capacity (11/11/2022 4:06 PM EDT) Iron 126 30 - 160 mcg/dL [facility] Total Iron Binding Capacity 289 228 - 428 mcg/dL [facility] Percent Iron Saturation 44 15 - 50 % [facility] Unsaturated Iron Binding 163 ug/dL [facility] 11/11/2022 4:06 PM EDT 11/11/2022 4:06 PM EDT [facility] External Provider LAB BLO OD ORDERABLES Final Result Performing Organization Address [facility] Co de Phone Number [facility] [address] [place] [phone] * (ABNORMAL) Basic Metabolic Panel (11/11/2022 4:06 PM EDT) [facility] Sodium 140 135 - 145 mmol/L [facility] Potassium 4.0 3.3 - 5.1 mmol/L [facility] Chloride 108 96 - 108 mmol/L [facility] Carbon Dioxide 25 22 - 29 mmol/L [facility] Anion Gap 11(L) 12 - 20 [facility] Urea Nitrogen (BUN) 11 9 - 16 mg/dL [facility] Creatinine, Serum 0.68 0.5 - 1.4 mg/dL [facility] Estimated Glomerular Filt Rate >60 [facility] Comment:NOTE: For -Am erican individuals, multiply the result by 1.210.Chronic Kidney Disease: Estimated GFR < 60 mL/min/1.90u5Wlbppq Kidney Disease: Estimated GFR < 15 mL/min/1.73m2 Glucose 96 60 - 115 mg/dL [facility] Calcium 9.4 8.4 - 10.2 mg/dL [facility] 11/11/2022 4:06 PM EDT 11/11/2022 4:06 PM EDT [facility] External Provider LAB BLO OD ORDERABLES Final Result Performing Organization Address [facility]/ZIP Co de Phone Number [facility] [address] [place] [phone] * (ABNORMAL) CBC auto differential (11/11/2022 4:06 PM EDT) White Blood Count 7.8 4.8 - 10.8 X10*3/uL [facility] Red Blood Count 4.61 4.20 - 5.50 X10*6/uL [facility] Hemoglobin 11.9(L) 12.0 - 16.0 g/dl [facility] Hematocrit 37.8 37.0 - 47.0 % [facility] Mean Corpuscular Volume 82.0 80.0 - 98.0 fL [facility] Mean Corpuscular Hemoglobin 25.8(L) 27.0 - 33.0 pg [facility] Mean Corpuscular HGB Conc 31.5 31.0 - 35.0 g/dl [facility] Red Cell Distribution Width 12.1 11.0 - 16.0 % [facility] Platelet Count 189 160 - 400 X10*3/uL [facility] Mean Platelet Volume 12.2 9.4 - 12.3 fL [facility] Neutrophils Percent Auto 54.1 45 - 73 % [facility] Imm Gran Pct Auto 0.3 0.0 - 0.4 % [facility] Lymphocytes Percent Auto 36.6 20 - 40 % [facility] Monocytes Percent Auto 7.0 2 - 11 % [facility] Eosinophils Percent Auto 1.4 0 - 4 % [facility] Basophils Percent Auto 0.6 0 - 2 % [facility] NRBC Pct Auto 0.0 0.0 - 0.2 /100WBC [facility] Neutrophils Absolute Auto 4.2 2.0 - 8.3 x10*3/uL [facility] Imm Gran Abs Auto 0.02 0.00 - 0.03 X10*3/uL [facility] Lymphocytes Absolute Auto 2.8 1.2 - 4.9 X10*3/uL [facility] Monocytes Absolute Auto 0.5 0.1 - 1.2 X10*3/uL [facility] Eosinophils Absolute Auto 0.1 0.0 - 0.4 X10*3/uL [facility] Basophils Absolute Auto 0.1 0.0 - 0.2 X10*3/uL [facility] NRBC Abs Auto 0.000 0.0 - 0.012 X10*3/uL [facility] 11/11/2022 4:06 PM EDT 11/11/2022 4:06 PM EDT [facility] External Provider LAB BLO OD ORDERABLES Final Result [facility] [address] [place] [phone] documented in this encounter Visit Diagnoses Diagnosis Encounter for surveillance of contraceptive pills documented in this encounter Additional Health Concerns Assessment Noted Time PHQ-9 Depression Total Score: 0 06/18/19 23 10:11 AM EST documented as of this encounter Care Teams Senior Sharepoint Architect Relationship Specialty Start Date End Date Nathalie Zambrano FNP [address] [place] [phone] PCP - General Family Medicine 04/05/22 01/09/24 Louise Thomas MD [address] [place] [phone] PCP - General Internal Medicine 01/10/24 documented as of this encounter
--- OUTSIDE RECORDS SUMMARY | 2025-02-28 10:33 | XMS_ITS | Encounter Summary ---
Author Organization [employer] Address [address] [address] Care Team Providers Care Golf Course Superintendent Name Role Phone Louise Thomas MD Primary Care Pro vider Reason for Visit * Reason Onset Date Comments Med Refill 02/26/2025 Encounter Details Date Type Department Care Team (Late st Contact Info) Description 02/26/2025 Refill [facility] MEDICINE [address] [place] [address] Louise Thomas MD [address] [place] [address] Encounter for surveillance of contraceptive pills Social [...] documented as of this encounter Care Teams Golf Course Superintendent Relationship Specialty Start Date End Date Louise Thomas MD [address] [place] [phone] PCP - General Internal Medicine 01/10/24 documented as of this encounter
--- OUTSIDE RECORDS SUMMARY | 2025-02-28 10:33 | XMS_ITS | Encounter Summary ---
Author Organization [employer] Address [address] [place] [phone] Care Team Providers Care Lead Burner Helper Name Role Phone Catina Agee MD Primary Care Provider [facility] Primary Care Provider [phone] Louise Thomas MD Primary Care Pro vider Encounter Details Date Type Department Care Team (Latest Contact Info) Description 08/03/2021 Abstract [facility] CONVERSIONS Dental, Provider, DDS Social History [...] on filedocumented in this encounter Care Teams Lead Burner Helper Relationship Specialty Start Date End Date Catina Agee MD PCP - General Family Medicine 02/16/22 04/04/22 Nathalie Zambrano FNP [address] [place] [address] PCP - General Family Medicine 04/05/22 01/09/24 Louise Thomas MD [address] [place] [phone] PCP - General Internal Medicine 01/10/24 documented as of this encounter
--- OUTSIDE RECORDS SUMMARY | 2025-02-28 10:33 | XMS_ITS | Encounter Summary ---
Author Organization [employer] Address [address] [address] Care Team Providers Care Hypoid Gear Generator Name Role Phone Louise Thomas MD Primary Care Pro vider Reason for Visit * Reason Onset Date Comments Med Refill 04/10/2024 Encounter Details Date Type Department Care Team (Late st Contact Info) Description 04/10/2024 Refill [facility] [address] [place] [address] Nathalie Zambrano FNP [address] [place] [phone] Encounter for surveillance of contraceptive pills Social [...] documented as of this encounter Care Teams Hypoid Gear Generator Relationship Specialty Start Date End Date Louise Thomas MD [address] [place] [phone] PCP - General Internal Medicine 01/10/24 documented as of this encounter
[2025-02-28 11:45] LABS: Hematocrit 36.4 % (37.0-47.0); Hemoglobin 11.5 g/dl (12.0-16.0); Mean Corpuscular HGB Conc 31.6 g/dl (31.0-35.0); Mean Corpuscular Hemoglobin 26.4 pg (27.0-33.0); Mean Corpuscular Volume 83.5 fL (80.0-98.0); NRBC Abs Auto 0.000 X10*3/uL (0.0-0.012); NRBC Pct Auto 0.0 /100WBC (0.0-0.2); Platelet Count 205 X10*3/uL (160-400); Red Blood Count 4.36 X10*6/uL (4.20-5.50); White Blood Count 8.3 X10*3/uL (4.8-10.8)
[2025-02-28 12:05] LABS: Iron 112 mcg/dL (30-160); Percent Iron Saturation 38 % (15-50); Total Iron Binding Capacity 293 mcg/dL (228-428); Unsaturated Iron Binding 181 ug/dL
[2025-02-28 12:08] LABS: Ferritin 25 ng/mL (10-122)
== END 2025-02-28 09:27 | disposition home or self-care (01) ==
LOC: HO.HHCL 09:26
PROVIDERS: PCP Student in an Organized Health Care Education/Training Program; Visit Provider Student in an Organized Health Care Education/Training Program
DX: D64.9 Anemia, unspecified (principal)
CPT/HCPCS: 36415; 82728; 83540; 85027